=== PATIENT | female | born 1985 | race Caucasian/White ===

== ENCOUNTER → 2020-01-27 11:23 | Outpatient (CLI) | payer OTHER, SELFPAY ==
--- NOTE | ~2020-01-27 | XR_ITS ---
EXAMINATION: XR chest 2V EXAM DATE: 01/27/2020 11:40 INDICATION: Cough. TECHNIQUE: Frontal and lateral projections of the chest obtained and reviewed. Comparison is made to prior examination from 03/20/2018. FINDINGS: The lungs are clear. There are no pleural effusions. The cardiomediastinal silhouette is within normal limits. There is no pneumothorax suspected. The bones and soft tissues are unremarkab le. There are cholecystectomy clips. IMPRESSION: No acute cardiopulmonary findings. Reviewed, dictated and finalized at location A.
== END ==
PROVIDERS: PCP Internal Medicine; Visit Provider Nurse Practitioner
DX: R05 Cough (principal)
CPT/HCPCS: 71046

== ENCOUNTER 2020-02-22 12:04 | Outpatient (NON) | payer OTHER, SELFPAY ==
[2020-02-23 11:49] LABS: SARS-CoV-2 RNA PCR Negative
== END 2020-02-22 12:05 ==
PROVIDERS: PCP Internal Medicine; Visit Provider Nurse Practitioner
DX: R68.89 Other general symptoms and signs (principal); Z20.828 Contact with and (suspected) exposure to other viral communicable diseases
CPT/HCPCS: 87635; U0003

== ENCOUNTER 2020-03-28 14:43 | Outpatient (CLI) | payer OTHER, SELFPAY ==
--- NOTE | 2020-04-02 01:42 | WPDPFTINT ---
PFT Interpretation PFT Interpretation: DOS: 03/28/2020 REQUESTING: Mecca Singh PA-C REASON FOR TESTING: Shortness of breath PULMONARY FUNCTION TESTS Patient had a (+) COVID test on 02/20/2020. Results are reproducible. Spirometry: FEV1 is 94%, FVC is 90%, and FEV1% is 82%, all normal. No bronchodilator was given. Lung volumes: TLC 84%, normal RV 63%, and normal airway resistance. Diffusion: DLCO is 94%, normal. Flow volume loop: Normal. IMPRESSION: Normal study. Tiana Longoria MD
--- NOTE | 2020-08-08 09:41 | WPDPFTINT ---
PFT Interpretation PFT Interpretation: This Spirometry met all criteria for ATS standards and reproducibility FEV/FVC pre bronchodilator 78% of predicted FEV1 81% of predicted 2.51 liters FVC 92% of predicted or 3.66 liters Flow volume loops appeared normal. Impression: Normal Spirometry. When compared to March 2020 there has been no significant change. Clinical correlation is advised.
--- NOTE | 2020-08-22 09:20 | WPDPFTINT ---
PFT Interpretation PFT Interpretation: This Spirometry met all criteria for ATS standards and reproducibility FEV/FVC post bronchodilator 69% FEV1 81% or 2.51 liters FVC 92% or 3.66 liters Lung volumes and diffusion capacity were not done. Flow volume loops looked normal. Impression: Possible mild obstruction. Would recommend repeating full PFT with methacholine challenge. Clinical correlation is advised.
== END 2020-03-28 14:44 | disposition home or self-care (01) ==
PROVIDERS: PCP Internal Medicine; Visit Provider Nurse Practitioner
DX: R06.02 Shortness of breath (principal)
CPT/HCPCS: 94375; 94726; 94729

== ENCOUNTER 2020-08-01 12:34 | Outpatient (CLI) | payer OTHER, SELFPAY ==
--- NOTE | 2020-08-01 12:50 | ECHO_ITS ---
Patient Info Name: Leonora Pelletier Call Age: 35 years : 1985 Gender: Female Ht: 67 in Wt: 155 lbs BSA: 1.83 m2 HR: 86 bpm BP: 116 / 82 mmHg Heart Rhythm: Sinus Rhythm Technical Quality: Good Exam Date: 08/01/2020 1:04 PM Exam Location: [facility] Patient Status: Outpatient Admit Date: 08/01/2020 Staff Ordering Physician: Wily Regan DO Retail Loss Prevention Officer: Osbaldo Coppola RDCS Attending Provider: Wily Regan DO Referring Physician: Jass GR; Exam Type: CA echo doppler color flow Study Info Indications R06.02 - Shortness of breath Complete two-dimensional, color flow and Doppler transthoracic echocardiogram is performed. History/Risk Factors Shortness of breath. Summary 1. Complete two-dimensional, color flow and Doppler transthoracic echocardiogram is performed. 2. Left ventricular chamber dimension is normal. 3. Left ventricular systolic function is normal, estimated at 60-65%. 4. The left ventricular diastolic function is normal. 5. E/e' 7 is not elevated. 6. Global longitudinal strain is normal at -19.5%. Left Ventricle E/e' 7 is not elevated. Global longitudinal strain is normal at -19.5%. Left ventricular chamber dimension is normal. Left ventricular systolic function is normal, estimated at 60-65%. The left ventricular diastolic function is normal. Right Ventricle Right ventricular chamber dimension is normal. Right ventricular systolic function is normal. Left Atria Left atrial chamber dimension is normal. Right Atria Right atrial chamber dimension is normal. Aortic Valve The aortic valve is trileaflet. There is no aortic valve stenosis. There is no aortic valve regurgitation. Pulmonic Valve There is no pulmonic regurgitation. Mitral Valve There is no mitral valve stenosis. There is no mitral valve regurgitation. Tricuspid Valve There is no tricuspid valve regurgitation. Pericardium/Pleural There is no pericardial effusion. Inferior Vena Cava Normal inferior vena cava with >50% collapse upon inspiration consistent with normal right atrial pressure, 5 mmHg. Aorta The aortic root size at the sinus of Valsalva is normal. Left Ventricular Outflow Tract Name Value Normal LVOT 2D LVOT Diameter 2.0 cm LVOT Doppler LVOT Peak Gradient 3 mmHg LVOT Mean Gradient 2 mmHg LVOT VTI 18 cm LVOT VTI/AV VTI Ratio 0.9 LVOT Stroke Volume 55 ml LVOT CO 4.3 l/min LVOT CI 2.4 l/min/m2 Mitral Valve Name Value Normal MV Doppler MV Decel [place] 454 cm/s2 MV PHT 51 ms MV Area (PHT) 4.3 cm2
--- NOTE | 2020-08-22 09:23 | PFT_ITS ---
This report was moved to the correct visit, [id number], on August 27, 2020. Original report was signed by Dr. Melissa Lemon on August 22, 2020 at 0923. PFT Interpretation PFT Interpretation: This Spirometry met all criteria for ATS standards and reproducibility FEV/FVC post bronchodilator 69% FEV1 81% or 2.51 liters FVC 92% or 3.66 liters Lung volumes and diffusion capacity were not done. Flow volume loops looked normal. Impression: Possible mild obstruction. Would recommend repeating full PFT with methacholine challenge. Clinical correlation is advised. Report Initialized date/time: Melissa Lemon MD 08/22/20922 Electronically signed by: Melissa Lemon MD 08/22/20922 [facility]
== END 2020-08-01 12:35 | disposition home or self-care (01) ==
LOC: ANHCARD 12:36
PROVIDERS: PCP Internal Medicine; Visit Provider Internal Medicine
DX: R06.02 Shortness of breath (principal)
CPT/HCPCS: 93306; 94060

== ENCOUNTER 2020-11-28 08:58 | Outpatient (NON) | payer OTHER, SELFPAY ==
[2020-11-28 21:58] LABS: SARS-CoV-2 RNA PCR Negative
== END 2020-11-28 08:59 ==
LOC: ANHCOVIDDT 08:59
PROVIDERS: PCP Internal Medicine; Visit Provider Internal Medicine
DX: Z20.822 Contact with and (suspected) exposure to COVID-19 (principal)
CPT/HCPCS: C9803; U0003; U0005

== ENCOUNTER → 2021-07-02 02:41 | Outpatient (CLI) | payer BC, SELFPAY ==
[2021-07-02 19:41] LABS: SARS-CoV-2 RNA PCR Negative
== END ==
PROVIDERS: PCP Internal Medicine; Visit Provider Internal Medicine
DX: Z20.822 Contact with and (suspected) exposure to COVID-19 (principal)
CPT/HCPCS: C9803; U0003; U0005

== ENCOUNTER → 2021-07-16 12:57 | Outpatient (CLI) | payer BC, SELFPAY ==
--- NOTE | ~2021-07-16 | XR_ITS ---
EXAMINATION: XR chest 2V DATE: 07/16/2021 13:09 INDICATION: Cough TECHNIQUE: PA and lateral views of the chest are obtained. COMPARISON: 01/27/2020 FINDINGS: The lungs are free of acute opacities. There is no pleural effusion or pneumothorax. The ca rdiomediastinal silhouette is normal. The visualized bones and soft tissues are unremarkable. IMPRESSION: 1. No acute cardiopulmonary abnormality. Reviewed, dictated and finalized at location B.
== END ==
PROVIDERS: PCP Internal Medicine; Visit Provider Nurse Practitioner
DX: R05 Cough (principal)
CPT/HCPCS: 71046

== ENCOUNTER → 2021-10-08 03:57 | Outpatient (CLI) | payer BC, SELFPAY ==
[2021-10-08 20:04] LABS: SARS-CoV-2 RNA PCR Negative
== END ==
PROVIDERS: PCP Internal Medicine; Visit Provider Nurse Practitioner
DX: Z20.822 Contact with and (suspected) exposure to COVID-19 (principal)
CPT/HCPCS: C9803; U0003; U0005

== ENCOUNTER 2022-04-22 09:10 | Emergency (ER) | payer BC, SELFPAY ==
--- NOTE | ~2022-04-22 | CT_ITS ---
EXAMINATION: CT brain wo con DATE: 04/22/2022 10:35 INDICATION: Unrelenting migraine headache. Posterior headache radiating to neck. Nausea. TECHNIQUE: Computed tomography (CT) of the head was performed without intravenous contrast. The mA wa s adjusted according to patient size. Iterative reconstruction technique was employed. Exam dose: 60 5.33 mGy-cm total exam DLP. COMPARISON: 03/20/2018 CT brain FINDINGS: No intracranial mass lesion or hemorrhage or cerebrovascular accident. No midline shift or mass effect effect. Normal ventricular size. Normal upton-white matter differentiation. No subdural or epidural hematoma. No fracture or bone destruction of the cranial vault. Included mastoid air cells and paranasal sinuse s are normally developed and aerated. IMPRESSION: Normal examination Reviewed, dictated and finalized at Location A. Reviewed, dictated and finalized at location A. IMPRESSION: Normal examination
[2022-04-22 09:40] VITALS: BP 135/91; PULSE 83; RESP 16; TEMP 36.9; O2SAT 96
--- NOTE | 2022-04-22 09:57 | ED.HA ---
HPI - Headache General Chief Complaint: Headache Stated Complaint: headache Time Seen by Provider: 04/22/22 09:45 History of Present Illness HPI Narrative: Patient is a 36-year-old female here for evaluation of a migraine headache over the past 3 days. Patient states the migraine has been constant in nature, is pulsatile and throbbing around her left orbit, and is also described as a band of tension around her head. The migraine is there throughout the day and is not worse at a particular time, and is associated with floaters, photophobia, phonophobia, and nausea. Denies relief after Advil, tramadol, Tylenol, prednisone. She has a diagnosis of vestibular migraines, for which she follows with an ENT and a COVID clinic at [place]. These have been attributed to a sequela of COVID, and she deals with chronic dizziness and sensation of imbalance. She has not had imaging of her brain. Patient has not gotten headaches with the symptoms. She was given prednisone by her ENT without relief of her symptoms. Related Data Home Medications Medication Instructions Recorded Confirmed gabapentin 100 mg capsule 100 mg PO TID 03/26/21 07/16/21 ubrogepant 50 mg tablet (Ubrelvy) 50 mg PO ONCE 03/26/21 07/16/21 Allergies Allergy/AdvReac Type Severity Reaction Status Date / Time Iodine and Iodide Containing Allergy Unknown Hives Verified 03/26/21 12:26 Produc Contrast Media Allergy Mild Hives / Uncoded 03/26/21 12:26 Red Face Review of Systems Review of Systems: Gen: Denies fevers or chills Eyes: Reports photophobia and floaters. denies eye pain ENT: Denies congestion Respiratory: Denies shortness of breath or cough CV: Denies chest pain or palpitations GI: Reports nausea. Denies abdominal pain, emesis or diarrhea : denies burning, urgency, frequency or hematuria Musculoskeletal: Denies back pain or muscle pain Neuro: Reports headache. Denies numbness, tingling, weakness or focal weakness Skin: Denies rash Except as documented, all other systems reviewed and negative [facility] Past Medical History Medical History Bruising, spontaneous COVID-19 Gastroesophageal reflux disease with esophagitis Shortness of Breath UTI (urinary tract infection) Surgical History Surgical History History of hysterectomy Family History Family History Mother Patient's mother is in good health Father Patient's father is in good health Other Cerebrovascular accident Family history of cardiovascular disease Family history of malignant neoplasm Social History Social History Alcohol intake: current Exam Narrative: APPEARANCE: Well appearing, no pain in distress, well-nourished. Head: normocephalic and atraumatic. EYES: PERRLA/EOMI, conjunctivae clear. Photophobia. NOSE: No nasal drainage Neck: No nuchal rigidity. EARS: External ear normal in appearance THROAT: Oropharynx is clear. Mucous membranes are moist. NECK: Supple. No adenopathy, no masses. RESPIRATORY: Airway patent, respirations nonlabored. Clear to auscultation bilaterally, no rales, rhonchi, wheezing. CARDIOVASCULAR: Regular rate and rhythm without murmurs, rubs, or gallops. ABDOMINAL: Normoactive bowel sounds. Soft, nontender, nondistended. No rebound tenderness or guarding. MUSCULOSKELETAL: Extremities are warm and well-perfused. Moves all extremities well. No edema. NEURO: Cranial nerves II through XII intact. [id number] normal. Normal speech. No focal neurologic deficits. SKIN:: Skin is warm and dry. No rashes. PSYCHIATRIC: Normal affect/mood. Course Vital Signs Vital signs: Vital Signs Temperature 36.9 C 04/22/22 09:40 Pulse Rate 83 04/22/22 09:40 Respiratory Rate 16 04/22/22 09:40 Blood Pressure 135/91 H 04/22/22 09:40 P
[2022-04-22 10:35] VITALS: BP 135/90; PULSE 74; RESP 16; O2SAT 99
[2022-04-22] MEDS: SODIUM CHLORIDE 0.9% IV 1,000 ML 999 ML IV CONT (10:36)
[2022-04-22] MEDS: diphenhydrAMINE HCl INJ 50 MG/ML VIAL 12.5 MG IV PUSH (10:37)
[2022-04-22] MEDS: PROCHLORPERAZINE EDISYLATE 10 MG/2 ML VIAL IV PUSH (10:37)
[2022-04-22] MEDS: KETOROLAC 15 MG/ML VIAL (*BKC) IV PUSH (11:21)
[2022-04-22 11:30] VITALS: BP 122/80; PULSE 70; RESP 16; O2SAT 96
== END 2022-04-22 11:30 | disposition home or self-care (01) ==
PROVIDERS: Emergency Provider Emergency Medicine; PCP Internal Medicine
DX: G43.909 Migraine, unspecified, not intractable, without status migrainosus (principal); K21.00 Gastro-esophageal reflux disease with esophagitis, without bleeding; Z86.16 Personal history of COVID-19; Z87.440 Personal history of urinary (tract) infections
CPT/HCPCS: 70450; 96361; 96374; 96375; 99284; J0780; J1200; J1885; J7030

== ENCOUNTER 2022-10-20 00:23 | Day surgery (SDC) | payer BC, SELFPAY ==
[2022-10-17 09:51] VITALS: BMI 27.9
[2022-10-20 10:44] VITALS: BP 109/80; PULSE 90; RESP 19; TEMP 36.2; O2SAT 98
[2022-10-20] MEDS: LACTATED RINGERS 1,000 ML 150 ML IV CONT (10:52)
--- NOTE | 2022-10-20 11:24 | WPDANESEPPF ---
Anes - Initial Pre Proc Eval Procedure: Operation Date: 10/20/22 14:00 Proposed Procedures p Esophagogastroduodenoscopy EGD - Ishmael Avila MD Date/Time: 10/20/22 11:24 Surgeon: Ishmael Avila MD Pre Op Diagnosis: dysphagia Patient Data Age: 37 Gender: F Height: 1.7 m Weight: 82 kg Last Vital Signs Temp 97.2 F L 10/20/22 10:44 Pulse 90 10/20/22 10:44 Resp 19 10/20/22 10:44 BP 109/80 10/20/22 10:44 Pulse Ox 98 10/20/22 10:44 O2 Del Method Room Air 10/20/22 10:44 Allergies Allergy/AdvReac Type Severity Reaction Status Date / Time Iodine and Iodide Containing Allergy Unknown Hives Verified 10/20/22 10:43 Produc Contrast Media Allergy Mild Hives / Uncoded 10/20/22 10:43 Red Face Home Medications Medication Instructions Recorded Confirmed Type gabapentin 100 mg capsule 100 mg PO TID 03/26/21 10/17/22 History cetirizine 10 mg tablet (Zyrtec) 10 mg PO DAILY #30 tabs 05/13/22 10/17/22 Rx famotidine 20 mg tablet (Pepcid) 20 mg PO DAILY #30 tabs 05/13/22 10/17/22 Rx nortriptyline 25 mg capsule 25 mg PO QHS 10/10/22 10/17/22 History ondansetron 4 mg disintegrating 4 mg PO Q8H 10/10/22 10/17/22 History tablet propranolol 10 mg tablet 10 mg PO Q12H 10/10/22 10/17/22 History Patient hx anesthesia problems: none Family hx anesthesia problems: none Results Review: All pre-operative results and documents have been reviewed as part of the pre-operative evaluation. [facility] Past Medical History Medical History Bruising, spontaneous COVID-19 Gastroesophageal reflux disease with esophagitis Shortness of Breath UTI (urinary tract infection) Surgical History Surgical History History of hysterectomy Family History Family History Mother Patient's mother is in good health Father Patient's father is in good health Other Cerebrovascular accident Family history of cardiovascular disease Family history of malignant neoplasm Social History Social History Smoking status: Never smoker Alcohol intake: current Drinks per week: 3 Substance use: never Substance use type: does not use Living arrangements: with family Spiritual care concerns: No Anes - Eval Final PreProcedure Day of Procedure 10/20/22 11:24 Patient weight: overweight Heart: regular rate and rhythm Lungs: clear to auscultation Airway: Mallampati scale class II Neurological: alert and oriented Last oral intake: >/= 8 hours ASA classification: II Emergent: no Anesthetic plan: proceed Results Review: All pre-operative results and documents have been reviewed as part of the pre-operative evaluation. Informed Consent: The patient's anesthetic plan and its attendant risks and benefits were discussed with the patient/family/POA. Questions were solicited and answers provided to the satisfaction of the patient/family/POA.
--- NOTE | 2022-10-20 11:38 | P.HP_ITS ---
History of Present Illness History of Present Illness Consent: Risks, benefits, and alternatives have been discussed and questions answered. Patient agrees to proceed with procedure. Chief complaint: dysphagia Narrative: Leonora Pena is a 37 year old female With difficulty swallowing. She has had a previous Wojciech fundoplication. Afterwards she did have EGD twic e by , with dilatation with a 52 [place] bougie, in 2018 and 2019 Review of Systems Review of Systems: All systems reviewed & are unremarkable except as noted in HPI and below PMFSH Past Medical History Medical History Bruising, spontaneous COVID-19 Gastroesophageal reflux disease with esophagitis Shortness of Breath UTI (urinary tract infection) Surgical History Surgical History History of hysterectomy Family History Family History Mother Patient's mother is in good health Father Patient's father is in good health Other Cerebrovascular accident Family history of cardiovascular disease Family history of malignant neoplasm Social History Social History Smoking status: Never smoker Alcohol intake: current Drinks per week: 3 Substance use: never Substance use type: does not use Living arrangements: with family Spiritual care concerns: No Meds Home Medications and Allergies Home Medications Medication Instructions Recorded Confirmed Type gabapentin 100 mg capsule 100 mg PO TID 03/26/21 10/17/22 History cetirizine 10 mg tablet (Zyrtec) 10 mg PO DAILY #30 tabs 05/13/22 10/17/22 Rx famotidine 20 mg tablet (Pepcid) 20 mg PO DAILY #30 tabs 05/13/22 10/17/22 Rx nortriptyline 25 mg capsule 25 mg PO QHS 10/10/22 10/17/22 History ondansetron 4 mg disintegrating 4 mg PO Q8H 10/10/22 10/17/22 History tablet propranolol 10 mg tablet 10 mg PO Q12H 10/10/22 10/17/22 History Allergies Allergy/AdvReac Type Severity Reaction Status Date / Time Iodine and Iodide Containing Allergy Unknown Hives Verified 10/20/22 10:43 Produc Contrast Media Allergy Mild Hives / Uncoded 10/20/22 10:43 Red Face Vital Signs Vital Signs - 24 hr 10/20/22 10:44 Temperature 36.2 C L Pulse Rate 90 Respiratory Rate 19 Blood Pressure 109/80 Pulse Oximetry 98 Oxygen Delivery Room Air Exam Const: General: alert Orientation/consciousness: patient oriented x3 Resp: Auscultation: clear to auscultation bilaterally Cardio: Rhythm: regular rhythm GI: GI Palp: Yes Soft to palpation and No Tenderness to palpation present (GI) Neuro: General: patient oriented x3 Assessment and Plan Assessment and plan (1) Dysphagia: Code(s): R13.10 - Dysphagia, unspecified Status: Acute Assessment and Plan: EGD with possible biopsy or dilatation or cautery.
[2022-10-20 12:00] VITALS: BP 93/65; PULSE 81; RESP 22; O2SAT 98
[2022-10-20 12:10] VITALS: BP 100/69; PULSE 83; RESP 17; O2SAT 99
[2022-10-20 12:20] VITALS: BP 107/71; PULSE 77; RESP 12; O2SAT 99
== END 2022-10-20 12:30 | disposition home or self-care (01) ==
PROVIDERS: PCP Internal Medicine; Visit Provider Internal Medicine Gastroenterology
PROC: 0DJ08ZZ Inspection of Upper Intestinal Tract, Via Natural or Artificial Opening Endoscopic (ICD-10-PCS; CPT 43235; principal; 2022-10-20 14:00)
DX: R07.9 Chest pain, unspecified (principal); R13.10 Dysphagia, unspecified; K44.9 Diaphragmatic hernia without obstruction or gangrene; K31.89 Other diseases of stomach and duodenum; K21.9 Gastro-esophageal reflux disease without esophagitis
CPT/HCPCS: 43450; 43235; J2704; J7120

== ENCOUNTER → 2023-08-21 13:16 | Outpatient (CLI) | payer BC, SELFPAY ==
--- NOTE | ~2023-08-21 | MM_ITS ---
EXAMINATION: MM screening don BI w avis HISTORY: Screening mammogram TECHNIQUE: Craniocaudal and mediolateral oblique 3-D tomosynthesis images were obtained and synthetic 2-D images were generated. Bilateral rotated lateral CC views. CAD analysis was submitted and interp reted. COMPARISON: 10/15/2016 bilateral diagnostic mammogram and complete bilateral breast ultrasound examina tion BREAST PARENCHYMAL COMPOSITION: The breasts are heterogeneously dense, which may obscure small masses . FINDINGS: Stable fibroglandular asymmetry. There is no evidence of suspicious mass, calcification, or architectural distortion to suggest malignancy in either breast. There has been no suspicious interv al change. IMPRESSION: 1. No mammographic evidence of malignancy. 2. Recommend routine screening mammography in one year. BI-RADS Category 1: Negative Reviewed, dictated and finalized at location A.
== END ==
PROVIDERS: PCP Obstetrics & Gynecology; Visit Provider Obstetrics & Gynecology
DX: Z12.31 Encounter for screening mammogram for malignant neoplasm of breast (principal)
CPT/HCPCS: 77063; 77067

== ENCOUNTER 2024-11-15 15:37 | Outpatient (CLI) | payer BC, SELFPAY ==
--- NOTE | ~2024-11-15 | XR_ITS ---
Exam: Abdomen 1 view HISTORY: K59.00 - Constipation, unspecified COMPARISON: Reference is made to a CT examination of the abdomen and pelvis dated 09/08/2019 TECHNIQUE: Frontal images of the abdomen FINDINGS: Fecal stasis within the ascending colon and rectum. Air is present within the rectum. Air opacification and air-fluid levels of the hepatic flexure and a large loop of likely transverse c olon within the mid abdomen. Evidence of prior abdominal hernia repair No free air on upright view. Lung bases are unremarkable. Bones and soft tissues are unremarkable. IMPRESSION: Fecal stasis distending the ascending colon and rectum Air-fluid levels within the hepatic flexure and the large loop of likely transverse colon within the mid abdomen. Reviewed, dictated and finalized at location A. [employer] IMPRESSION: Fecal stasis distending the ascending colon and rectum Air-fluid levels within the hepatic flexure and the large loop of likely transv erse colon within the mid abdomen.
== END 2024-11-15 15:38 | disposition home or self-care (01) ==
LOC: MICIMG 15:38
PROVIDERS: PCP Nurse Practitioner; Visit Provider Nurse Practitioner
DX: K56.41 Fecal impaction (principal)
CPT/HCPCS: 74019

== ENCOUNTER 2024-12-26 12:36 | Emergency (ER) | payer BC, SELFPAY ==
--- NOTE | ~2024-12-26 | CT_ITS ---
EXAMINATION: CT abdomen pelvis wo con DATE: 12/26/2024 15:27 INDICATION: Abdominal pain. TECHNIQUE: Computed tomography (CT) of the abdomen and pelvis was performed without intravenous contr ast. Automated exposure control and iterative reconstruction technique were employed. The dose-length product was 429.45 mGy-cm. COMPARISON: CT abdomen and pelvis 11/17/2024 FINDINGS: The visualized portions of the lung bases are clear without pneumonia or pleural effusion. The heart size is normal. No pericardial effusion. There are changes of fundoplication of the stomach with the wrap above the diaphragm. The liver and spleen are normal. There are changes of cholecystec augustin. The pancreas, adrenal glands, and right kidney are normal. There are 3 stones in left kidney me asuring up to 3 mm. There are no dilated loops of bowel. The appendix is normal. There are no patholo gically enlarged lymph nodes. There is physiologic fluid in the pelvis. There is mild lumbar spondylo sis. IMPRESSION: 1. Changes of fundoplication of the stomach with the wrap above the diaphragm. Reviewed, dictated and finalized at location A. IVER DISPATCHER
[2024-12-26 12:48] VITALS: BP 105/75; PULSE 115; RESP 15; TEMP 39; O2SAT 99
--- NOTE | 2024-12-26 14:31 | ED_ITS ---
HPI - General Adult General Chief complaint: Nausea/Vomiting/Diarrhea Stated complaint: flu A, nauseated Time Seen by Provider: 12/26/24 14:09 History of Present Illness HPI narrative: 39-year-old female present to the emergency department for evaluation for nausea vomiting and epigastric abdominal pain. Patient states she did start developing flu-like symptoms yesterday and did do some outpatient testing and was positive for flu A. Patient states that she does have a history of Wojciech fundoplication and Zofran is not helping with her nausea. Patient was told if she has uncontrolled nausea vomiting that she needs to present to the emergency department for evaluation. Patient does report epigastric abdominal pain patient has declined any medications for pain control patient is mainly seeking medications for nausea control. Patient has previously tolerated Reglan. Related Data Home Medications ?Medication ?Instructions ?Recorded ?Confirmed ?Last Taken ?Type fremanezumab-vfrm 225 mg/1.5 mL 225 mg subcut MONTHLY 10/09/23 10/12/24 Unknown History subcutaneous auto-injector (Ajovy) rizatriptan 5 mg tablet 5 mg PO ONCE PRN 10/09/23 10/12/24 Unknown History omeprazole 10 mg capsule,delayed 10 mg PO DAILY 10/12/24 10/12/24 Unknown History release topiramate 25 mg tablet mg PO 10/12/24 10/12/24 Unknown History Allergies Allergy/AdvReac Type Severity Reaction Status Date / Time Iodine and Iodide Containing Allergy Unknown Hives Verified 12/26/24 14:45 Produc Contrast Media Allergy Mild Hives / Uncoded 12/26/24 14:45 Red Face Review of Systems 2 Review of Systems: All systems reviewed & are unremarkable except as noted in HPI and below PMFSH Past Medical History Medical History BMI 26.0-26.9,adult COVID-19 Shortness of Breath Bruising, spontaneous UTI (urinary tract infection) Gastroesophageal reflux disease with esophagitis Surgical History Surgical History History of cholecystectomy History of lithotripsy History of gastric surgery H/O hernia repair History of hysterectomy Family History Family History Mother Patient's mother is in good health Father suicide Sibling No problems noted. Other Cerebrovascular accident Family history of cardiovascular disease Family history of malignant neoplasm Social History Social History Smoking status: Never smoker Second hand tobacco smoke exposure: No Alcohol intake: current Drinks per week: 3 Substance use: never Substance use type: does not use Do You Feel Safe in your Home?: Yes Lack of Transportation: No Lack of Food: Never True Current Housing: I Have Housing Concerned About Future Housing: No Difficulty Paying Gas/Electric Bills: No Difficulty Paying for Meds: No Currently Unemployed: No Education: High School Diploma/GED Difficulty w/ Childcare or Family Care: No Living arrangements: with family Occupation/Education: occupation 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 Gender identity (if verbalized by the patient): Female Spiritual care concerns: No Exam 2 Narrative: APPEARANCE: Uncomfortable appearing HEAD: normocephalic, atraumatic. EYES: PERRLA/EOMI, conjunctivae clear. NOSE: Normal no drainage EARS:TMS clear with good light reflex. THROAT: Pharynx clear, no exudate. NECK: Supple. No adenopathy, no masses. RESPIRATORY: Airway patent, respirations nonlabored. Clear to auscultation bilaterally, no rales, rhonchi, wheezing. CARDIOVASCULAR: Regular rate and rhythm without murmurs rubs or gallops. ABDOMINAL: Epigastric tenderness to palpation MUSCULOSKELETAL: Moves all extremities. Strength/ROM intact, No edema, No calf tenderness. NEURO: Alert. Cranial nerves II through XII intact. Good gait. Good coordination SKIN: Warm, dry. Normal ColorPSYCHIATRIC: Normal affect/mood. Course Vital Signs Vital signs: Vital Signs Temperature 102.2 F H 12/26/24 12:48 Pulse Rate 115 H 12/26/24 12:48 Respiratory Rate 15 12/26/24 12:48 Blood Pressure 105/75 12/26/24 12:48 Pulse Oximetry 99 12/26/24 12:48 Temperature 102.2 F H 12/26/24 12:48 Pulse Rate 115 H 12/26/24 12:48 Respiratory Rate 15 12/26/24 12:48 Blood Pressure 105/75 12/26/24 12:48 Pulse Oximetry 99 02/17/25 12:48 Medical Decision Making [facility] Narrative Medical decision making narrative: 39-year-old female present to the emergency department for evaluation for nausea vomiting. Patient was positive for influenza A at home. Patient does have Tessalon Perles ordered to prevent excessive coughing due to her Wojciech fundoplication, patient is currently afebrile with no leukocytosis and hemoglobin of 12.8 patient's INR is 1.0 patient did have a mildly low potassium of 3.2. Patient's lactic acid is not elevated. Lipase was within normal limits. Patient was treated with IV fluids and did feel significantly improved. Patient also received IV Reglan and she states this did help to control her nausea. CT scan showed no acute abnormality. On re-evaluation patient was comfortable the plan for discharge home. Patient does have Zofran Tessalon Perles but she will be provided additional Reglan for nausea control. Patient was encouraged to follow a clear liquid diet. Patient will have follow-up with her surgeons. All questions concerns were addressed patient was comfortable the plan for discharge and close follow-up. Differential Diagnosis Differential Diagnosis: Colitis, diverticulitis, pancreatitis, ulcer, perforation, influenza, dehydration Vital Signs Vital Signs: Vital Signs Temperature 102.2 F H 12/26/24 12:48 Pulse Rate 115 H 12/26/24 12:48 Respiratory Rate 15 12/26/24 12:48 Blood Pressure 105/75 12/26/24 12:48 Pulse Oximetry 99 12/26/24 12:48 Temperature 102.2 F H 12/26/24 12:48 Pulse Rate 115 H 12/26/24 12:48 Respiratory Rate 15 12/26/24 12:48 Blood Pressure 105/75 12/26/24 12:48 Pulse Oximetry 99 12/26/24 12:48 Lab Data Lab results reviewed: Yes I reviewed the patient's lab results. 12/26/24 14:53 12/26/24 14:53 Labs: Lab Results 12/26/24 Range/Units 14:53 WBC 6.1 (4.5-10.0) K/mm3 RBC 4.63 (4.2-5.4) M/mm3 Hgb 12.8 (12.0-15.0) g/dL Hct 38.7 (37.0-47.0) % MCV 83.6 (80-100) fl MCH 27.6 (26-34) pg MCHC 33.1 (32-36) g/dl RDW 12.3 (11.5-14.5) % Plt Count 177 (150-375) k/mm3 MPV 11.1 H (7.4-10.4) fl Immature Gran % (Auto) 0.2 (0-0.5) % Neut % (Auto) 84.6 H (45.5-73.1) % Lymph % (Auto) 6.3 L (18.3-44.2) % [place] % (Auto) 8.4 (2.6-8.5) % Eos % (Auto) 0.0 (0-4.4) % Baso % (Auto) 0.5 (0.2-1.2) % Lymph # (Auto) 0.38 L (0.9-3.2) K/mm3 [place] # (Auto) 0.5 (0.1-0.6) K/mm3 Eos # (Auto) 0.0 (0-0.3) K/mm3 Baso # (Auto) 0.0 (0.0-0.1) K/mm3 Abs Immat Gran (auto) 0.01 (0.00-0.031) K/mm3 Absolute Neuts (auto) 5.1 (1.3-6.7) K/mm3 Absolute Nucleated RBC 0.000 (0.0-0.012) K/mm3 Nucleated RBC % 0.0 (0.0-0.2) % PT 13.8 (11.1-14.7) Seconds INR 1.0 APTT 33.3 (22.3-36.8) Seconds Sodium 136 L (137-145) mmol/L Potassium 3.2 L (3.4-5.0) mmol/L Chloride 104 (98-107) mmol/L Carbon Dioxide 21 L (22-30) mmol/L Anion Gap 11 (4-12) mmol/L BUN 5 L (7-17) mg/dL Creatinine 0.72 (0.7-1.0) mg/dL Estim Creat Clear Calc 83 ml/min Estimated GFR > 60 (59 - ) Glucose 110 (65-110) mg/dL Lactic Acid 1.0 (0.7-2.0) mmol/L Calcium 8.4 (8.4-10.2) mg/dL Total Bilirubin 0.8 (0.2-1.3) mg/dL AST 83 H (14-36) U/L ALT 103 H (6-35) U/L Alkaline Phosphatase 68 (38-126) U/L Total Protein 7.0 (6.3-8.2) g/dL Albumin 4.0 (3.5-5.1) g/dL Lipase 64 (23-300) U/L Imaging Data Radiologist's impression: Impressions Abdomen/Pelvis CT 12/26/24 15:28 IMPRESSION: 1. Changes of fundoplication of the stomach with the wrap above the diaphragm. Discharge Plan Discharge Clinical Impression: Abdominal pain, Nausea & vomiting Patient Disposition: Home, Self-Care Condition: Stable Instructions: Antibiotic Form, Clear Liquid Diet (ED), Abdominal Pain (ED) Additional Instructions: continue Zofran as needed for nausea control. Reglan as needed for additional nausea control. Clear liquid diet for the next 1-3 days, advance to a bland diet as tolerated. Have close follow-up with your physicians. If you have any worsening symptoms then please call or return to the emergency department. Patient Language: Uzbek Prescriptions: New metoclopramide HCl [Reglan] 10 mg tablet 10 mg PO Q6H PRN (Reason: nausea and vomiting) Qty: 14 0RF No Action rizatriptan 5 mg tablet 5 mg PO ONCE PRN Rx Instructions: may repeat once after at least 2 hours Ajovy Autoinjector 225 mg/1.5 mL auto-injector 225 mg subcut MONTHLY omeprazole 10 mg capsule,delayed release(DR/EC) 10 mg PO DAILY topiramate 25 mg tablet PO gabapentin 400 mg capsule 400 mg PO TID Qty: 90 5RF nortriptyline 25 mg capsule See Rx Instructions .ROUTE .COMPLEX Qty: 30 5RF Dose Instruction: TAKE 1 CAPSULE BY MOUTH EVERY DAY AT BEDTIME Rx Instructions: TAKE 1 CAPSULE BY MOUTH EVERY DAY AT BEDTIME phenazopyridine 200 mg tablet 200 mg PO TID PRN (Reason: urinary discomfort) Qty: 6 0RF ondansetron 4 mg tablet,disintegrating 4 mg PO Q8H PRN (Reason: nausea and vomiting) Qty: 30 0RF benzonatate 200 mg capsule 200 mg PO TID PRN (Reason: cough) Qty: 30 0RF oseltamivir [Tamiflu] 75 mg capsule 75 mg PO Q12H 5 Days Qty: 10 0RF Follow-up/Referrals: Jordin Alcantara APRN [Primary Care Provider] -
[2024-12-26] MEDS: SODIUM CHLORIDE 0.9% IV 1,000 ML 999 ML IV CONT (14:48)
[2024-12-26] MEDS: METOCLOPRAMIDE HCL INJ 10 MG/2 ML VIAL IV PUSH (14:49)
--- OUTSIDE RECORDS SUMMARY | 2024-12-26 15:00 | XMS_ITS | Encounter Summary ---
Author Organization [employer] Address 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 No / Unsure 02/02/2020 11:13 AM CDT documented as of this encounter Plan of Treatment Not on file documented as of this encounter Visit Diagnoses Not on filedocumented in this encounter Additional Health Concerns Infection Onset Date Last Indicated Resolved Time COVID-19 02/07/2020 02/07/2020 03/08/2020 1:16 AM CDT documented as of this encounter Care Teams Pin Puller Relationship Specialty Start Date End Date Wily Regan DO [address] [place] [address] PCP - General Internal Medicine 07/01/19 documented as of this encounter
--- OUTSIDE RECORDS SUMMARY | 2024-12-26 15:00 | XMS_ITS | Encounter Summary ---
Author Organization [employer] Address [address] [place] [address] Care Team Providers Care Senior Vice President & General Counsel Name Role Phone Wily Regan DO Primary Care Provider [phone] Encounter Details Date Type Department Care Team (Late st Contact Info) Description 02/12/2020 Digital Self COVID-1 9 Monitoring [place] ABSTRACTION Provider, Abstract NO ADDRESS ON FILE Social History Tobacco Use Types Packs/Day Years Used Date Smoking Tobacco: Never Alcohol Use Standard Drinks/Week Comments No 0 (1 standard drink = 0.6 oz pur e alcohol) Comments No Sex and Gender Information Value Date Recorded Sex Assigned at Not on file 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
--- OUTSIDE RECORDS SUMMARY | 2024-12-26 15:00 | XMS_ITS | Clinical Summary ---
Author Organization [facility] Address [address] [place] [address] Phone Care Team Providers Care Semiautomatic Taper Operator Name Role Phone Wily Regan DO Primary Care Provider [phone] Allergies Active Allergy Reactions Criticality Noted Date Comments Iodinated Contrast Media Hives High 07/08/2019 Medications ondansetron (ZOFRAN) 4 mg Oral Tab Take 8 mg by mouth every 6 hours as needed. 04/15/2010 Active cyanocobalamin (VITAMIN B-12) 500 mcg tablet Take 500 mcg by mouth daily. Active omeprazole (PriLOSEC) 20 mg Capsule, Delayed Release(E.C.) Take 20 mg by mouth daily. Active gabapentin (NEURONTIN) 100 mg capsule Take 100 mg by mouth 3 times daily. Active cyanocobalamin Powder Take 1,000 mg by mouth. Active azithromycin (ZITHROMAX) 250 mg tablet Take 2 tablets by mouth the first day and 1 tablet days 2-5. 6 Tablet 02/11/2020 Active Active Problems Problem Noted Date Diagnosed Date Easy bruising 07/22/2019 Immunizations Immunization Administration Dates Next Due Influenza A (H1N1) Vaccine IM 08/11/2009 Influenza Seasonal Unspecified Formulation IM ,09/01/2009 Family History Medical History Relation Name Comments Seizures Brother -born @ 26weeks Healthy Father Healthy Mother Relation Name Status Comments Brother Father Alive Mother Alive Social History Tobacco Use Types Packs/Day Years Used Date Smoking Tobacco: Never Alcohol Use Standard Drinks/Week Comments No 0 (1 standard drink = 0.6 oz pur e alcohol) Comments No Sex and Gender Information Value Date Recorded Sex Assigned at Not on file 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 Gender Identity Not on file Sexual Orientation Not on file Last Filed Vital Signs Vital Sign Reading Time Taken Comments Blood Pressure 114/78 07/22/2019 8:26 AM CDT Pulse 94 02/11/2020 9:41 AM CDT Temperature 37.8 C (100.1 F) 02/11/2020 9:41 AM CDT Respiratory Rate 18 10/09/2010 12:54 PM MARKET EDITOR Oxygen Saturation 99% 02/11/2020 9:41 AM CDT Inhaled Oxygen Concentration - - Weight 66 kg (145 lb 9.6 oz) 07/22/2019 8:26 AM CDT Height 170.2 cm (5' 7 ) 07/22/2019 8:26 AM CDT Body Mass Index 22.8 07/22/2019 8:26 AM CDT Plan of Treatment Health Maintenance Due Date Last Done Comments DTAP/TDAP/TD VACCINES (1 - Tdap) 2002 HEPATITIS B VACCINES (1 of 3 - 19+ 3-dose series) 2002 CERVICAL CANCER SCREENING 2013 BREAST CANCER SCREENING 2023 INFLUENZA VACCINE (#1) 2024 0, 09/01/2009 HPV VACCINES Aged Out No longer eligi ble based on patient's age to complete this topic Insurance [facility] [id number] Advance Directives For more information, please contact: [phone] * Full Code (Latest Code Status on File) Date Activated Date Inactivated Comments 10/09/2010 1:23 PM 10/09/2010 4:54 PM * Full Code Date Activated Date Inactivated Comments 09/18/2010 10:42 PM 09/19/2010 3:24 AM * Full Code Date Activated Date Inactivated Comments 06/25/2010 8:40 PM 06/26/2010 12:09 AM * Full Code Date Activated Date Inactivated Comments 05/28/2010 1:45 PM 05/28/2010 7:47 PM * Full Code Date Activated Date Inactivated Comments 05/28/2010 10:49 AM 05/28/2010 1:45 PM Care Teams Semiautomatic Taper Operator Relationship Specialty Start Date End Date Wily Regan DO [address] [facility] [address] [place] [address] PCP - General Internal Medicine 07/01/19
--- OUTSIDE RECORDS SUMMARY | 2024-12-26 15:00 | XMS_ITS | Encounter Summary ---
Author Organization [employer] Address 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
--- OUTSIDE RECORDS SUMMARY | 2024-12-26 15:00 | XMS_ITS | Encounter Summary ---
Author Organization [facility] Address [address] [place] [address] Phone Care Team Providers Care P 3 Armament/Ordnance Ima Technician Name Role Phone Wily Regan DO Primary Care Provider [phone] Chantelle Shields MD Unavailable [phone] Teetee Gaming MD, Ramez Slaughter Unavailable + Bonnie Prince DPT Unavailable [phone] Chase Sofia MD Unavailable Jo Vyas OT Unavailable [phone] Jordin Alcantara NP Primary Care Provider [phone] Encounter Details Date Type Department Care Team (Late st Contact Info) Description 10/03/2022 Orders Only [facility] Scanning, Provider Social History Tobacco Use Types Packs/Day Years Used Date Smoking Tobacco: Never Smokeless Tobacco: Never Alcohol Use Standard Drinks/Week Comments No 0 (1 standard drink = 0.6 oz pur e alcohol) AUDIT-C Answer Date Recorded Q1: How often do you have a drink containing alc ohol? Monthly or less 06/25/2021 Q2: How many drinks containi ng alcohol do you have on a typical day when you are drinking? 1 or 2 06/25/2021 Q3: How often do you have si x or more drinks on one occasion? 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 Gender Identity Female 01/24/2021 10:20 AM CDT Sexual Orientation Straight 01/24/2021 10 :20 AM CDT documented as of this encounter Plan of Treatment Not on file documented as of this encounter Procedures Procedure Name Priority Date/Time Associated Diagnosis Comments SCAN - RADIOLOGY/IMAGING 10/03/2022 documented in this encounter Results * SCAN - RADIOLOGY/IMAGING (10/03/2022) Anatomical Region Laterality Modality Other us Provider Scanning Final Result documented in this encounter Visit Diagnoses Not on filedocumented in this encounter Care Teams P 3 Armament/Ordnance Ima Technician Relationship Specialty Start Date End Date Wily Regan DO PCP - General Internal Medicine 12/14/20 06/01/24 Jordin Alcantara, EDUCATIONAL ADVISER [address] [place] [address] PCP - General Nurse Practitioner 06/02/24 Chantelle Shields MD Consulting Physician Internal Medicine 02/13/21 Ramez Kingsley Jr., MD Consulting Physician Neurology 02/13/21 Bonnie Prince DPT [address] [place] [address] Physical Therapist Physical Therapy 08/14/22 Chase Sofia MD [address] [place] [address] Consulting Physician Gastroenterology 12/25/22 Jo Vyas OT [address] [place] [address] Occupational Therapist Occupational Therapy 01/29/23 Sabrina Kurtz, [place] [address] Bone Char Puller Infectious Diseases 08/11/22 documented as of this encounter
--- OUTSIDE RECORDS SUMMARY | 2024-12-26 15:00 | XMS_ITS | Encounter Summary ---
Author Organization [employer] Address 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 Gender Identity Not on file Sexual Orientation Not on file documented as of this encounter Plan of Treatment Not on file documented as of this encounter Visit Diagnoses Diagnosis Bipolar I disorder, most recent episode (or current) mixed, unspecified (CMS/HCC)- Primary Bipolar I disorder, most recent episode (or current) mixed, unspecified documented in this encounter Additional Health Concerns Infection Onset Date Last Indicated Resolved Time COVID-19 02/07/2020 02/07/2020 03/08/2020 1:16 AM CDT R/O COVID-19 02/07/2020 02/07/2020 02/10/2020 5:10 PM CDT documented as of this encounter Care Teams Sort Line Worker Relationship Specialty Start Date End Date Wily Regan DO [address] [facility] [address] [facility] [[email or web address] [address] [place] [address] PCP - General Internal Medicine 07/01/19 documented as of this encounter
--- OUTSIDE RECORDS SUMMARY | 2024-12-26 15:00 | XMS_ITS | Encounter Summary ---
Author Organization [facility] Address [address] [place] [address] Phone Care Team Providers Care Corporate Travel Counselor Name Role Phone Robert Hernandez MD Primary Care Provider [phone] Wily Regan DO Primary Care Provider [phone] Chantelle Shields MD Unavailable [phone] Teetee Gaming MD, Ramez Slaughter Unavailable + Bonnie Prince DPT Unavailable [phone] Chase Sofia MD Unavailable Jo Vyas OT Unavailable [phone] Jordin Alcantara NP Primary Care Provider [phone] Encounter Details Date Type Department Care Team (Late st Contact Info) Description 08/05/2018 Orders Only [facility] Surgery [address] [facility] Advanced Medicine 8th [place] [address] [place] [address] Molina Jackson MD [address] [place] [address] Social History Tobacco Use Types Packs/Day Years Used Date Smoking Tobacco: Never Smokeless Tobacco: Never Alcohol Use Standard Drinks/Week Comments No 0 (1 standard drink = 0.6 oz pur e alcohol) Comments No Sex and Gender Information Value Date Recorded Sex Assigned at Not on file 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 Gender Identity Female 01/24/2021 10:20 AM CDT Sexual Orientation Straight 01/24/2021 10 :20 AM CDT documented as of this encounter Plan of Treatment Not on file documented as of this encounter Visit Diagnoses Not on filedocumented in this encounter Additional Health Concerns Infection Onset Date Last Indicated Resolved Time COVID: Suspected 07/19/2021 07/19/2021 07/19/2021 11:11 PM CDT documented as of this encounter Care Teams Corporate Travel Counselor Relationship Specialty Start Date End Date Robert Hernandez MD [address] [facility] [address] [facility] [address] [place] [address] PCP - General 03/30/18 12/13/20 Wily Regan DO [address] [place] [address] [address] [place] [address] PCP - General Internal Medicine 12/14/20 06/01/24 Jordin Alcantara, DOPE WEIGH OPERATOR [address] [place] [address] PCP - General Nurse Practitioner 06/02/24 Chantelle Shields MD [address] [place] [address] [address] [place] [address] Consulting Physician Internal Medicine 02/13/21 Ramez Kingsley Jr., MD [address] [place] [address] [address] [facility] [address] [place] [address] Consulting Physician Neurology 02/13/21 Bonnie Prince, DPT [address] [address] Physical Therapist Physical Therapy 08/14/22 Chase Sofia MD [address] [place] [address] Consulting Physician Gastroenterology 12/25/22 Jo Vyas, OT [address] [place] [address] Occupational Therapist Occupational Therapy 01/29/23 [place] [address] University Extension Specialist Infectious Diseases 08/11/22 documented as of this encounter
--- OUTSIDE RECORDS SUMMARY | 2024-12-26 15:00 | XMS_ITS | Clinical Summary ---
Author Organization [facility] Address [address], [address] [address] Phone Care Team Providers Care Brim Stretcher Name Role Phone Wily Regan DO Primary Care Provider [phone] Allergies Active Allergy Reactions Criticality Noted Date Comments Other Hives 03/23/2019 CT IV dye Medications hyoscyamine (LEVSIN) 0.125 MG Tablet Take 1 Tab by mouth every 6 hours as needed for Cramping. 120 Tab 3 8 Active omeprazole (PRILOSEC) 20 MG CAPSULE DELAYED RELEASE Take 1 Cap by mouth daily. 30 Cap 3 9 Active Additional Information Patient taking differently:20 mg Oral2 TIMES DAILY PRN, Reported on 03/23/2019 gabapentin (NEURONTIN) 100 MG Capsule Take 1 Cap by mouth nightly. 90 Cap 3 9 Active ondansetron (ZOFRAN) 8 MG Tablet Take 8 mg by mouth every 8 hours as needed for Nausea - 1st line. Active Calcium Carbonate Antacid (TUMS PO) Take by mouth as needed. Active Cyanocobalamin (B-12 PO) Take 1,000 mg by mouth daily. Active Family History Medical History Relation Name Comments No Known Problems Father Chronic Obstructive Pulmonary Disease Mother Emphysema Mother Cancer Paternal Grandfather Cancer Paternal Grandmother Relation Name Status Comments Father Mother Alive Paternal Grandfather Paternal Grandmother Social History Tobacco Use Types Packs/Day Years Used Date Smoking Tobacco: Never Smokeless Tobacco: Never Alcohol Use Standard Drinks/Week Comments No 0 (1 standard drink = 0.6 oz pur e alcohol) Sexually Active Control Partners Comments Yes Male Comments No Sex and Gender Information Value Date Recorded Sex Assigned at Not on file 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 Gender Identity Not on file Sexual Orientation Not on file 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 Not on file Not on file Not on file Last Filed Vital Signs Vital Sign Reading Time Taken Comments Blood Pressure 112/80 08/05/2019 10:03 AM CDT Pulse 66 08/05/2019 10:03 AM CDT Temperature 36 C (96.8 F) 04/06/2019 10:14 AM CDT Respiratory Rate 13 04/06/2019 10:14 AM CDT Oxygen Saturation 98% 08/05/2019 10:03 AM CDT Inhaled Oxygen Concentration - - Weight 66.2 kg (146 lb) 08/05/2019 10:03 AM CDT Height 170.2 cm (5' 7 ) 04/06/2019 8:49 AM CDT Body Mass Index 22.87 04/06/2019 8:49 AM CDT Plan of Treatment Health Maintenance Due Date Last Done Comments Hepatitis C Virus (HCV) Screening 1983 TdaP Immunization 1983 Hepatitis B Immunization (1 of 3 - 19+ 3-dose series) 2002 Discussion re Starting/Frequency of Mammograms 2023 Influenza Immunization (#1) 07/10/202408/09, 08/20/2012 SARS-COV-2 Immunization ( season) 2024 09/29/2021, 01/31/2021, 01/08/2021 Respiratory Syncytial Virus (RSV) Immunization (Adult) (1 - 1-dose 75+ series) 2058 Meningococcal Immunization (ACWY) Aged Out No longer eligible b ased on patient's age to complete this topic Pneumococcal Immunization Combined Aged Out No longer eligible b ased on patient's age to complete this topic Rotavirus Immunization Aged Out No lo nger eligible based on patient's age to complete this topic Care Teams Brim Stretcher Relationship Specialty Start Date End Date Wily Regan DO [address] [place] [id number] PCP - General Internal Medicine 04/06/19
--- OUTSIDE RECORDS SUMMARY | 2024-12-26 15:00 | XMS_ITS | Encounter Summary ---
Author Organization [facility] Address [address] [place] [address] Care Team Providers Care Shade Cutter Name Role Phone Wily Regan DO Primary Care Provider [phone] Encounter Details Date Type Department Care Team (Late st Contact Info) Description 01/06/2001 Outpatient Historical [facility] [address] [facility] 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 Gender Identity Not on file Sexual Orientation Not on file documented as of this encounter Plan of Treatment Not on file documented as of this encounter Visit Diagnoses Not on filedocumented in this encounter Additional Health Concerns Infection Onset Date Last Indicated Resolved Time COVID-19 02/07/2020 02/07/2020 03/08/2020 1:16 AM CDT R/O COVID-19 02/07/2020 02/07/2020 02/10/2020 5:1 0 PM CDT documented as of this encounter Care Teams Shade Cutter Relationship Specialty Start Date End Date Wily Regan DO [address] [facility] [address] [place] [address] PCP - General Internal Medicine 07/01/19 documented as of this encounter
--- OUTSIDE RECORDS SUMMARY | 2024-12-26 15:00 | XMS_ITS | Encounter Summary ---
Author Organization [employer] Address 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
--- OUTSIDE RECORDS SUMMARY | 2024-12-26 15:00 | XMS_ITS | Encounter Summary ---
Author Organization [facility] Address [address] [place] [address] Phone Care Team Providers Care Gunner'S Mate M Name Role Phone Wily Regan DO Primary Care Provider [phone] Chantelle Shields MD Unavailable [phone] Teetee Gaming MD, Ramez Slaughter Unavailable + Bonnie Prince DPT Unavailable [phone] Chase Sofia MD Unavailable Jo Vyas OT Unavailable [phone] Jordin Alcantara NP Primary Care Provider [phone] Encounter Details Date Type Department Care Team (Late st Contact Info) Description 10/05/2022 Orders Only [facility] Scanning, Provider Social History Tobacco Use [...] on file 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 Sex Female 2:13 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 CONTROL 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 Gender Identity Female 01/24/2021 10:20 AM CDT Sexual Orientation Straight 01/24/2021 10 :20 AM CDT documented as of this encounter Plan of Treatment Not on file documented as of this encounter Procedures Procedure Name Priority Date/Time Associated Diagnosis Comments SCAN - RADIOLOGY/IMAGING 10/05/2022 documented in this encounter Results * SCAN - RADIOLOGY/IMAGING (10/05/2022) Anatomical Region Laterality Modality Other us Provider Scanning Final Result documented in this encounter Visit Diagnoses Not on filedocumented in this encounter Care Teams Gunner'S Mate M Relationship Specialty Start Date End Date Wily Regan DO PCP - General Internal Medicine 12/14/20 06/01/24 Jordin Alcantara, CHARGE MASTER COORDINATOR [address] [place] [address] PCP - General Nurse Practitioner 06/02/24 Chantelle Shields MD Consulting Physician Internal Medicine 02/13/21 Ramez Kingsley Jr., MD Consulting Physician Neurology 02/13/21 Bonnie Prince DPT [address] [place] [address] Physical Therapist Physical Therapy 08/14/22 Chase Sofia MD [address] [place] [address] Consulting Physician Gastroenterology 12/25/22 Jo Vyas OT [address] [place] [address] Occupational Therapist Occupational Therapy 01/29/23 Sabrina Kurtz, [place] [address] Deputy Assessor Infectious Diseases 08/11/22 documented as of this encounter
--- OUTSIDE RECORDS SUMMARY | 2024-12-26 15:00 | XMS_ITS | Encounter Summary ---
Author Organization [facility] Address [address] [place] [address] Care Team Providers Care Director Of Residential Services Name Role Phone Wily Regan DO Primary Care Provider [phone] Encounter Details Date Type Department Care Team (Late st Contact Info) Description 09/01/2000 Outpatient Historical [facility] 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
--- OUTSIDE RECORDS SUMMARY | 2024-12-26 15:00 | XMS_ITS | Encounter Summary ---
Author Organization [employer] Address 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
--- OUTSIDE RECORDS SUMMARY | 2024-12-26 15:00 | XMS_ITS | Encounter Summary ---
Author Organization [email or web address] Address [address] [place] [address] Care Team Providers Care Director Enterprise Systems Name Role Phone Wily Regan DO Primary Care Provider [phone] Encounter Details Date Type Department Care Team (Latest Contact Info) Description 09/14/2002 Outpatient Historical [facility] [place] Eric Mcdonald MD [address] [facility] [address] [place] [address] DEPRESS PSYCHOSIS-UNSPEC (Primary Dx) Social History Tobacco Use Types Packs/Day Years Used Date Smoking Tobacco: Never Assessed Comments Unknown Sex and Gender Information Value Date Recorded Sex Assigned at Not on file Legal Sex Female 5:22 AM IN HOME NANNY Gender Identity Not on file Sexual Orientation Not on file documented as of this encounter Plan of Treatment Not on file documented as of this encounter Visit Diagnoses Diagnosis Major depressive disorder, single episode, unspecified- Primary documented in this encounter Additional Health Concerns Infection Onset Date Last Indicated Resolved Time COVID-19 02/07/2020 02/07/2020 03/08/2020 1:16 AM CDT R/O COVID-19 02/07/2020 02/07/2020 02/10/2020 5:10 PM CDT documented as of this encounter Care Teams Director Enterprise Systems Relationship Specialty Start Date End Date Wily Regan DO [address] [place] [address] PCP - General Internal Medicine 07/01/19 documented as of this encounter
--- OUTSIDE RECORDS SUMMARY | 2024-12-26 15:00 | XMS_ITS | Encounter Summary ---
Author Organization [email or web address] Address 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
--- OUTSIDE RECORDS SUMMARY | 2024-12-26 15:00 | XMS_ITS | Encounter Summary ---
Author Organization [facility] Address [address] [place] [address] Care Team Providers Care Sandblast Or Shotblast Equipment Tender Name Role Phone Wily Regan DO Primary Care Provider [phone] Encounter Details Date Type Department Care Team (Late st Contact Info) Description 07/18/1998 Outpatient Historical [facility] 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
--- OUTSIDE RECORDS SUMMARY | 2024-12-26 15:00 | XMS_ITS | Encounter Summary ---
Author Organization [employer] Address 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 Gender Identity Not on file Sexual Orientation Not on file documented as of this encounter Plan of Treatment Not on file documented as of this encounter Visit Diagnoses Diagnosis Cervicalgia- Primary documented in this encounter Additional Health Concerns Infection Onset Date Last Indicated Resolved Time COVID-19 02/07/2020 02/07/2020 03/08/2020 1:16 AM CDT R/O COVID-19 02/07/2020 02/07/2020 02/10/2020 5:10 PM CDT documented as of this encounter Care Teams Ux Manager Relationship Specialty Start Date End Date Wily Regan DO [address] [facility] [address] [place] [address] PCP - General Internal Medicine 07/01/19 documented as of this encounter
--- OUTSIDE RECORDS SUMMARY | 2024-12-26 15:00 | XMS_ITS | Encounter Summary ---
Author Organization [employer] Address 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
--- OUTSIDE RECORDS SUMMARY | 2024-12-26 15:00 | XMS_ITS | Encounter Summary ---
Author Organization [employer] Address 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
--- OUTSIDE RECORDS SUMMARY | 2024-12-26 15:00 | XMS_ITS | Encounter Summary ---
Author Organization [employer] Address 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 Gender Identity Not on file Sexual Orientation Not on file documented as of this encounter Plan of Treatment Not on file documented as of this encounter Visit Diagnoses Diagnosis Abdominal pain, unspecified site- Primary documented in this encounter Additional Health Concerns Infection Onset Date Last Indicated Resolved Time COVID-19 02/07/2020 02/07/2020 03/08/2020 1:16 AM CDT R/O COVID-19 02/07/2020 02/07/2020 02/10/2020 5:10 PM CDT documented as of this encounter Care Teams Authorization Manager Relationship Specialty Start Date End Date Wily Regan DO [address] [facility] [address] [place] [address] PCP - General Internal Medicine 07/01/19 documented as of this encounter
--- OUTSIDE RECORDS SUMMARY | 2024-12-26 15:01 | XMS_ITS | Referral Summary ---
Author Organization [facility] Address [address] [place] [address] Care Team Providers Care Electrician Shop Name Role Phone Chantelle Shields MD Unavailable Teetee Gaming MD, Ramez Slaughter Unavailable + Bonnie Prince DPT Unavailable [phone] Chase Sofia MD Unavailable Jo Vyas OT Unavailable [phone] Jordin Alcantara NP Primary Care Provider [phone] Encounters Date Type Department Care Team Description 12/15/2024 4:00 PM DIRECTOR OF CURRICULUM AND INSTRUCTION Office Visit [facility] General Neurology [address] [place] [address] 6th Floor [address] [place] [phone] Gabriella Garner PA Vestibular migraine (Primary Dx) 11/22/2024 Telephone [facility] ([facility]) - [facility] Minimally Invasive Surgery [address] [facility] 12th Floor, [place] [address] Radha Rosen 11/21/2024 Telephone [facility] Advanced Medicine ([facility]) - [facility] Minimally Invasive Surgery [address] [facility] Medicine 12th Floor, [place] [address] Radha Rosen 11/21/2024 7:39 AM DIRECTOR OF CURRICULUM AND INSTRUCTION - 11/21/2024 11:59 PM DIRECTOR OF CURRICULUM AND INSTRUCTION Hospital Encounter [facility] [address] [place] [address] Discharge Disposition: Discharge to home or self care 11/17/2024 Telephone [facility] ([facility]) - [facility] Minimally Invasive Surgery [address] [facility] 12th Floor, [place] [address] Radha Rosen 11/16/2024 Telephone [facility]) - [facility] Minimally Invasive Surgery [address] [facility] 12th Floor, [place] [address] Radha Rosen 10/27/2024 Plan of Care Documentation [facility] Occupational Therapy [address] [place] [phone] 10/27/2024 8:00 AM DIRECTOR OF CURRICULUM AND INSTRUCTION Therapy [facility] Physical Therapy [address] [place] [phone] Bonnie Prince, DPT Stephen MARIN (Primary Dx); Vestibular migraine 10/27/2024 7:00 AM DIRECTOR OF CURRICULUM AND INSTRUCTION Therapy [facility] Occupational Therapy [address] [place] [phone] Jo Vyas, OT Stephen MARIN (Primary Dx) from Last 3 Months Allergies Active Allergy Reactions Criticality Noted Date Comments Iodinated Contrast Media Hives Medium 07/08/2019 Medications ondansetron ODT (ZOFRAN-ODT) 4 mg disintegrating tablet Take 1 tablet (4 mg total) by mouth every 8 (eight) hours as needed for nausea or vomiting 20 tablet 2 023 Active propranoloL (INDERAL) 10 mg tabletIndications :Migraine Prevention Take 1 tablet (10 mg total) by mouth 2 (two) times a day Crush pills take in applesauce until 01/05 when able to take pills whole 023 Active Additional Information Patient taking differently:10 mg oralNightly, (No instructions reported), Indications: Migraine Prevention, Reported on 12/15/2024 nortriptyline (PAMELOR) 25 mg capsule Take 1 capsule (25 mg total) by mouth nightly 30 capsule 1 023 Active gabapentin (NEURONTIN) 300 mg capsuleIndication s:Generalized muscle ache,COVID-19,His tory of COVID-19 TAKE 1 CAPSULE THREE TIMES DAILY. OPEN CAPSULE IN APPLESAUCE DIRECTED TILL ABLE TO TAKE WHOLE PILL 90 capsule 1 023 Active Additional Information Patient taking differently: Pt taking 400mg bid, Reported on 12/15/2024 guaiFENesin-codei ne (GUAITUSS AC) liquid 100-10 mg/5 mL Take 5 mL by mouth 4 (four) times a day as needed for cough 120 mL 024 Active rizatriptan (MAXALT) 10 mg tabletIndications :Migraine Take 1 tablet (10 mg total) by mouth once as needed for migraine May repeat in 2 hours if unresolved. Do not exceed 3 in 24 hours. 9 tablet 5 024 2024 Active topiramate (TOPAMAX) 25 mg tabletIndications :Intractable chronic migraine with aura and without status migrainosus,Vesti bular migraine Take 2 tablets (50 mg total) by mouth nightly 60 tablet 11 024 Active Additional Information Patient taking differently: 25 mgoral Nightly, Reported on 12/15/2024 fremanezumab-vfrm (Ajovy Autoinjector) 225 mg/1.5 mL auto-injector subcutaneous auto-injector ADMINISTER 1.5 ML(225 MG) UNDER THE SKIN EVERY 30 DAYS 1.5 mL 11 024 Active gabapentin (NEURONTIN) 100 mg capsule TAKE 1 CAPSULE(100 MG) BY MOUTH THREE TIMES DAILY 90 capsule 023 2024 Discontinued Active Problems Problem Noted Date Diagnosed Date Nutritional counseling 05/16/2024 Brain fog 12/23/2023 Vaccine counseling 09/08/2023 Anxiety about health 01/25/2023 Disrupted sleep-wake cycle 01/25/2023 Moderate malnutrition 12/30/2022 Paraesophageal hernia 12/29/2022 COVID-19 stephen garcia manifesting chronic fatigue 10/26/2022 COVID-19 stephen garcia manifes ting chronic decreased mobility and endurance 10/26/2022 Long COVID 07/08/2022 Dizziness 07/08/2022 Fatigue 07/08/2022 Myalgia 07/08/2022 Vestibular migraine 02/07/2022 Post covid-19 condition, unspecified 12/25/2021 Assessment & Plan (12/25/2021 9:25 AM DIRECTOR OF CURRICULUM AND INSTRUCTION): Pt is interested in the new findings that relate MCAS to Long Covid. Advised it is ok to try OTC antihistamines plus low histamine diet for 2-4 weeks. If no improvement, would discontinue. Advised against rx meds at this time as we aren't sure about their purpose/use in the post covid setting. Migraine aura without headache 12/25/2021 Assessment & Plan (12/25/2021 9:24 AM DIRECTOR OF CURRICULUM AND INSTRUCTION): Yesterday she had an incident where she experienced sx consistent w/ a migraine aura, but it was not followed by a typical migraine headache. She does have a hx of migraines w/ aura and a hx of vestibular issues and vertigo. She has seen neurology and is not currently interested in a return visit. Placed referral to ENT to address vestibular sx as a possible trigger. Provided reassurance regarding her vision changes -- temporary, lasted 30 min, no changes in coordination or sensation. In the interim, monitor sx closely for triggers. If this occurs again, she should go to ER or [facility]. Chronic migraine with aura 02/12/2021 Epigastric pain 01/03/2020 Overview (01/03/2020): Added automatically from request for surgery [id number] Chest pain due to GERD 07/19/2018 Overview (07/19/2018): Added automatically from request for surgery [id number] Esophageal dysphagia 07/13/2018 Overview (07/13/2018): Added automatically from request for surgery [id number] dysphagia s/p Wojicech fundoplication 04/20/2018 Hiatal hernia with gastroesophageal reflux 03/29 History of COVID-19 Shortness of breath Resolved Problems Problem Noted Date Diagnosed Date Resolved Date Dehydration 04/20/2018 04/22/2018 Immunizations Immunization Administration Dates Next Due H1N1 Inj 08/11/2009 Influenza, Trivalent, IM (MDV) 08/30/2010,2008 Influenza, Unspecified 08/23/2014,08/20/2012 Social History Tobacco Use Types Packs/Day Years Used Date Smoking Tobacco: Never Smokeless Tobacco: Never Tobacco Cessation:Counseling Given: Not Answered Alcohol Use Standard Drinks/Week Comments No 0 (1 standard drink = 0.6 oz pur e alcohol) AUDIT-C Answer Date Recorded Q1: How often do you have a drink containing alc ohol? Monthly or less 12/29/2022 Q2: How many drinks containi ng alcohol do you have on a typical day when you are drinking? 1 or 2 12/29/2022 Q3: How often do you have si x or more drinks on one occasion? Never 12/29/2022 Personal Safety Answer Date Recorded Getting School Help Needed Denies 10/21 Comments No Sex and Gender Information Value Date Recorded Sex Assigned at Not on file Legal Sex Female 2:13 AM DIRECTOR OF CURRICULUM AND INSTRUCTION Gender Identity Female 01/24/2021 10:20 AM CDT Sexual Orientation Straight 01/24/2021 10 :20 AM CDT Last Filed Vital Signs Vital Sign Reading Time Taken Comments Blood Pressure 114/83 12/15/2024 3:56 PM DIRECTOR OF CURRICULUM AND INSTRUCTION Pulse 95 12/15/2024 3:56 PM DIRECTOR OF CURRICULUM AND INSTRUCTION Temperature 36.2 C (97.2 F) 12/15/2024 3:56 PM DIRECTOR OF CURRICULUM AND INSTRUCTION Respiratory Rate 18 05/02/2024 8:32 AM CDT Oxygen Saturation 98% 12/15/2024 3:56 PM DIRECTOR OF CURRICULUM AND INSTRUCTION Inhaled Oxygen Concentration - - Weight 73.5 kg (162 lb) 06/02/2024 2:52 PM CDT Height 170.2 cm (5' 7 ) 06/02/2024 2:52 PM CDT Body Mass Index 25.37 06/02/2024 2:52 PM CDT Plan of Treatment Not on file Medical Devices Implanted Type Area Aircraft Engine Technician Device Identifier Shelf Expiration Date Model / Serial / Lot Ethicon Endo Surgery Ligaclip Extra Ligate Open Medium Large Clip Internal Titanium Latex Free [id number] - [id number] Implanted:Qty: 1 on 12/29/2022 by Molina Jackson MD at [facility] N/A: Abdomen Ethicon Endo Surgery [id number] 09/08/2027 [id number] / / [id number] [employer] Phasix Sepra 4x3in Monofilament Resorbable Rectangle Mesh [id number] - [id number] Implanted:Qty: 1 on 12/29/2022 by Molina Jackson MD at [facility] N/A: Abdomen [employer]/C R Bard [id number] 04/05/2024 [id number] / / [id number] Procedures Procedure Name Priority Date/Time Associated Diagnosis Comments CT BODY OUTSIDE REFERENCE Routine 11/21/2024 7:39 AM DIRECTOR OF CURRICULUM AND INSTRUCTION from Last 3 Months Results * CT Body Outside Reference (11/21/2024 7:39 AM DIRECTOR OF CURRICULUM AND INSTRUCTION) Impressions RAD_PACS[facility] - 11/21/2024 7:39 AM DIRECTOR OF CURRICULUM AND INSTRUCTION These images are for Reference purposes only and have not been reviewed by [facility]iology. There will be no report generated by a [facility] Radiologist. Narrative RAD_PACS_[facility] - 11/21/2024 7:39 AM DIRECTOR OF CURRICULUM AND INSTRUCTION EXAMINATION: Images For Reference Purposes Only Molina Jackson MD IMG CT PROCEDURES Final Resu lt Performing Organization Address City/State/[facility] Co de Phone Number [facility] from Last 3 Months Insurance [facility] [address] [address] CHOICE PLUS ANTHEM ACCESS CHOICE ANTHEM ACCESS CHOICE Advance Directives For more information, please contact: [phone] * Full Code (Latest Code Status on File) Date Activated Date Inactivated Comments 12/29/2022 8:38 PM 12/31/2022 7:04 PM * Full Code Date Activated Date Inactivated Comments 01/12/2020 1:13 PM 01/12/2020 7:16 PM * Full Code Date Activated Date Inactivated Comments 08/05/2018 12:59 PM 08/05/2018 4:39 PM * Full Code Date Activated Date Inactivated Comments 07/14/2018 8:24 AM 07/14/2018 2:07 PM * Full Code Date Activated Date Inactivated Comments 04/21/2018 9:26 AM 04/22/2018 5:40 PM Care Teams Electrician Shop Relationship Specialty Start Date End Date Jordin Alcantara NP [address] [place] [address] PCP - General Nurse Practitioner 06/02/24 Chantelle Shields MD Consulting Physician Internal Medicine 02/13/21 Ramez Kingsley Jr., MD Consulting Physician Neurology 02/13/21 Bonnie Prince DPT [address] [facility] [address] [place] [address] Physical Therapist Physical Therapy 08/14/22 Chase Sofia MD [address] [place] [address] Consulting Physician Gastroenterology 12/25/22 Jo Vyas OT [address] [place] [address] Occupational Therapist Occupational Therapy 01/29/23 Sabrina Kurtz, [place] [address] Harvesting Contractor Infectious Diseases 08/11/22
--- OUTSIDE RECORDS SUMMARY | 2024-12-26 15:01 | XMS_ITS | Clinical Summary ---
Author Organization [facility] Address [address] [place] [address] Care Team Providers Care Mold Machine Operator Name Role Phone Chantelle Shields MD Unavailable [phone] Teetee Gaming MD, Steven Richard Unavailable + Bonnie Prince DPT Unavailable [phone] Chase Sofia MD Unavailable [phone] Jo Vyas OT Unavailable [phone] Jordin Alcantara NP Primary Care Provider + [phone] Allergies Active Allergy Reactions Criticality Noted Date [...] 12/25/2021 Assessment & Plan (12/25/2021 9:25 AM SIDE SPLITTER): Pt is interested in the new findings that relate MCAS to Long Covid. Advised it is ok to try OTC antihistamines plus low histamine diet for 2-4 weeks. If no improvement, would discontinue. Advised against rx meds at this time as we aren't sure about their purpose/use in the post covid setting. Migraine aura without headache 12/25/2021 Assessment & Plan (12/25/2021 9:24 AM SIDE SPLITTER): Yesterday she had an incident where she [...] (01/03/2020): Added automatically from request for surgery [id number] Chest pain due to GERD 07/19/2018 Overview (07/19/2018): Added automatically from request for surgery [id number] Esophageal dysphagia 07/13/2018 Overview (07/13/2018): Added automatically from request for surgery [id number] dysphagia s/p Avery fundoplication 04/20/2018 Hiatal hernia with gastroesophageal reflux 03/29 History of COVID-19 Shortness of breath Resolved Problems Problem Noted Date Diagnosed Date Resolved Date Dehydration 04/20/2018 04/22/2018 Encounters Date Type Department Care Team Description 12/15/2024 4:00 PM SIDE SPLITTER Office Visit [facility] General Neurology [address] [facility] 6th Floor [address] [place] [address] Gabriella Garner PA Vestibular migraine (Primary Dx) 11/22/2024 Telephone [facility] ([facility]) - [facility] Minimally Invasive Surgery [address] [facility] 12th Floor, [place] [address] Radha Rosen 11/21/2024 7:39 AM SIDE SPLITTER - 11/21/2024 11:59 PM SIDE SPLITTER Hospital Encounter [facility] [address] [place] [address] Discharge Disposition: Discharge to home or self care 11/21/2024 Telephone [facility] ([facility]) - [facility] Minimally Invasive Surgery [address] [facility] 12th [address], [place] [address] Radha Rosen 11/17/2024 Telephone [facility] ([facility]) - [facility] Minimally Invasive Surgery [address] [facility] 12th Floor, [place] [address] Radha Rosen 11/16/2024 Telephone [facility] ([facility]) - [facility] Minimally Invasive Surgery [address] [facility] 12th Floor, [place] [address] Radha Rosen 10/27/2024 8:00 AM SIDE SPLITTER Therapy [facility] Physical Therapy [address] [place] [address] [address] [place] [address] Bonnie Prince, DPT Stephen MARIN (Primary Dx); Vestibular migraine 10/27/2024 7:00 AM SIDE SPLITTER Therapy [facility] Occupational Therapy [address] [place] [phone] Jo Vyas, OT Long COVID (Primary Dx) 10/27/2024 Plan of Care Documentation [facility] Occupational Therapy [address] [place] [phone] from Last 3 Months Immunizations Immunization Administration Dates Next Due H1N1 Inj 08/11/2009 Influenza, Trivalent, IM (MDV) 08/30/2010,2008 Influenza, Unspecified 08/23/2014,08/20/2012 Surgical History Surgery Date Site/Laterality Comments CHOLECYSTECTOMY TONSILLECTOMY SECTION 11/09/2010 - 11/08/2011 HYSTERECTOMY UMBILICAL HERNIA REPAIR AVERY FUNDOPLICATION 04/14/2018 ESOPHAGOSCOPY / EGD s/p dilatation CERVICAL CERCLAGE 11/09/2009 - 11/08/2010 EXTRACORPOREAL SHOCK WAVE LITHOTRIPSY Medical History Medical History Date Comments GERD (gastroesophageal reflux disease) Hiatal hernia Nausea & vomiting PONV (postoperative nausea and vomiting) relieved with IV medication and scope patch DOS Dysphagia esophageal dilat ions past Gastroparesis Weight loss Migraine Fibroid Kidney stones Family History Medical History Relation Name Comments Blood Clot Brother Hyperlipidemia Father Diabetes Maternal Grandfather Leukemia Maternal Grandfather COPD Mother Heart disease Mother Lung disease Mother Stroke Mother Colon cancer Paternal Grandfather Alzheimer's disease Paternal Grandmother Anesthesia problems Neg Hx Relation Name Status Comments Brother blood clot age 18 Father Maternal Grandfather Maternal Grandmother Mother CVA age 50s Paternal Grandfather Paternal Grandmother Social History Tobacco [...] on file Legal Sex Female 2:13 AM SIDE SPLITTER Gender Identity Female 01/24/2021 10:20 AM CDT Sexual Orientation Straight 01/24/2021 10 :20 AM CDT Obstetrics History Last Filed Vital Signs Vital Sign Reading Time Taken Comments Blood Pressure 114/83 12/15/2024 3:56 PM SIDE SPLITTER Pulse 95 12/15/2024 3:56 PM SIDE SPLITTER Temperature 36.2 C (97.2 F) 12/15/2024 3:56 PM SIDE SPLITTER Respiratory Rate 18 05/02/2024 8:32 AM CDT Oxygen Saturation 98% 12/15/2024 3:56 PM SIDE SPLITTER Inhaled Oxygen Concentration - - Weight 73.5 kg (162 lb) 06/02/2024 2:52 PM CDT Height 170.2 cm (5' 7 ) 06/02/2024 2:52 PM CDT Body Mass Index 25.37 06/02/2024 2:52 PM CDT Plan of Treatment Health Maintenance Due Date Last Done Comments Breast Cancer Screening-Mammogram 1983 Depression Screening 1983 Hepatitis C Screening 1983 DTaP/Tdap/Td Vaccine (1 - Tdap) 1994 Varicella Vaccines (1 of 2 - 13+ 2-dose series) 1996 Hepatitis B Screening 2001 Regular Well Visit/Exam 18-64 2001 Covid-19 Vaccine ( season) 2024 09/29/2021, 01/31/2021, 01/08/2021 Influenza Vaccine (#1) 2024 4, 08/20/2012, 08/30/2010, Additional history exists HPV Vaccines Aged Out No longer eligi ble based on patient's age to complete this topic Pneumococcal vaccine <65 Aged Out No longer eligible based on patient's age to complete this topic Medical Devices Implanted Type Area Entry Level Mechanical Engineer Device Identifier Shelf Expiration Date Model / Serial / Lot Ethicon Endo Surgery Ligaclip Extra Ligate Open Medium Large Clip Internal Titanium Latex Free Lt300 - [id number] Implanted:Qty: 1 on 12/29/2022 by Molina Jackson MD at [facility] N/A: Abdomen Ethicon Endo Surgery [id number] 09/08/2027 [id number] / / [id number] [employer] R Bard Phasix Sepra 4x3in Monofilament Resorbable Rectangle Mesh [id number] - [id number] Implanted:Qty: 1 on 12/29/2022 by Molina Jackson MD at [facility] N/A: Abdomen [employer]/C R Bard [id number] 04/05/2024 [id number] / / [id number] Procedures Procedure Name Priority Date/Time Associated Diagnosis Comments CT BODY OUTSIDE REFERENCE Routine 11/21/2024 7:39 AM SIDE SPLITTER from Last 3 Months Results * CT Body Outside Reference (11/21/2024 7:39 AM SIDE SPLITTER) Impressions [facility] - 11/21/2024 7:39 AM SIDE SPLITTER These images are for Reference purposes only and have not been reviewed by [facility] Radiology. There will be no report generated by a [facility] Radiologist. Narrative [facility] - 11/21/2024 7:39 AM SIDE SPLITTER EXAMINATION: Images For Reference Purposes Only L. Jordan Jackson MD IMG CT PROCEDURES Final Resu lt [facility] from Last 3 Months Insurance [facility] CHOICE PLUS ANTHEM ACCESS CHOICE ANTHEM ACCESS CHOICE Advance Directives For more information, please contact: [phone] * Full Code (Latest Code Status on [...] 9:26 AM 04/22/2018 5:40 PM Care Teams Mold Machine Operator Relationship Specialty Start Date End Date Jordin Alcantara, TRIM MOUNTER [address] [place] [address] PCP - General Nurse Practitioner 06/02/24 Chantelle Shields MD Consulting Physician Internal Medicine 02/13/21 Ramez Kingsley Jr., MD Consulting Physician Neurology 02/13/21 Bonnie Prince DPT [address] [facility] [address] [place] [address] Physical Therapist Physical Therapy 08/14/22 Chase Sofia MD [address] [facility] [address] [place] [address] Consulting Physician Gastroenterology 12/25/22 Jo Vyas OT [address] [facility] [address] [place] [address] Occupational Therapist Occupational Therapy 01/29/23 [place] [address] Perpetual Inventory Clerk Infectious Diseases 08/11/22
[2024-12-26 15:03] LABS: Basophils Percent Auto 0.5 % (0.2-1.2); Hematocrit 38.7 % (37.0-47.0); Hemoglobin 12.8 g/dL (12.0-15.0); Immature Granulocyte Absolute 0.01 K/mm3 (0.00-0.031); Immature Granulocyte Percent A 0.2 % (0-0.5); Lymphocytes Absolute Auto 0.38 K/mm3 (0.9-3.2); Lymphocytes Percent Auto 6.3 % (18.3-44.2); Mean Corpuscular HGB Conc 33.1 g/dl (32-36); Mean Corpuscular Hemoglobin 27.6 pg (26-34); Mean Corpuscular Volume 83.6 fl (80-100); Mean Platelet Volume 11.1 fl (7.4-10.4); Monocytes Absolute Auto 0.5 K/mm3 (0.1-0.6); Monocytes Percent Auto 8.4 % (2.6-8.5); Neutrophils Absolute Auto 5.1 K/mm3 (1.3-6.7); Neutrophils Percent Auto 84.6 % (45.5-73.1); Platelet Count Result 177 k/mm3 (150-375); Red Blood Count 4.63 M/mm3 (4.2-5.4); Red Cell Distribution Width 12.3 % (11.5-14.5); White Blood Count 6.1 K/mm3 (4.5-10.0)
[2024-12-26 15:14] LABS: Alanine Aminotransferase 103 U/L (6-35); Alkaline Phosphatase 68 U/L (38-126); Anion Gap 11 mmol/L (4-12); Aspartate Amino Transferase 83 U/L (14-36); Bilirubin,Total 0.8 mg/dL (0.2-1.3); Blood Urea Nitrogen 5 mg/dL (7-17); Calcium 8.4 mg/dL (8.4-10.2); Carbon Dioxide 21 mmol/L (22-30); Chloride 104 mmol/L (98-107); Estimated CRCL calculation 83 ml/min; Estimated Glomerular Filt Rate > 60; Glucose 110 mg/dL (65-110); Lipase 64 U/L (23-300); Potassium 3.2 mmol/L (3.4-5.0); Sodium 136 mmol/L (137-145)
[2024-12-26 15:23] LABS: Prothrombin Time 13.8 Seconds (11.1-14.7)
[2024-12-26 15:24] LABS: Partial Thromboplastin Time 33.3 Seconds (22.3-36.8)
--- OUTSIDE RECORDS SUMMARY | 2024-12-26 17:00 | XMS_ITS | Encounter Summary ---
Author Organization [facility] Address [address] [place] [address] Care Team Providers Care Binder Layer Name Role Phone Wily Regan DO Primary Care Provider [phone] Encounter Details Date Type Department Care Team (Late st Contact Info) Description 09/01/2000 Outpatient Historical [facility] [address] [place] [address] Darwin Beasley MD NO ADDRESS ON FILE Social History Tobacco Use Types Packs/Day Years Used Date Smoking Tobacco: Never Assessed Comments Unknown Sex and Gender Information Value Date Recorded Sex Assigned at Not on file Legal Sex Female 5:22 AM CONVEYOR CONSOLE OPERATOR Gender Identity Not on file Sexual [...] documented as of this encounter Care Teams Binder Layer Relationship Specialty Start Date End Date Wily Regan DO [address] [facility] [address] [place] [address] PCP - General Internal Medicine 07/01/19 documented as of this encounter
--- OUTSIDE RECORDS SUMMARY | 2024-12-26 17:00 | XMS_ITS | Encounter Summary ---
Author Organization [facility] [place] Address [address] [place] [address] Phone Care Team Providers Care Oxygen Equipment Technician Name Role Phone Wily Regan DO Primary Care Provider [phone] Chantelle Shields MD Unavailable [phone] Teetee Gaming MD, Ramez Slaughter Unavailable + Bonnie Prince DPT Unavailable [phone] Chase Sofia MD Unavailable Jo Vyas OT Unavailable [phone] Jordin Alcantara NP Primary Care Provider + [phone] Encounter Details Date Type Department Care Team [...] on file Legal Sex Female 2:13 AM WATER PROJECT ENGINEER Gender Identity Female 01/24/2021 10:20 AM CDT [...] on filedocumented in this encounter Care Teams Oxygen Equipment Technician Relationship Specialty Start Date End Date Wily Regan DO PCP - General Internal Medicine 12/14/20 06/01/24 Jordin Alcantara, NEON TUBE PUMPER [address] [place] [address] PCP - General Nurse Practitioner 06/02/24 Chantelle Shields MD Consulting Physician Internal Medicine 02/13/21 Ramez Kingsley Jr., MD Consulting Physician Neurology 02/13/21 Bonnie Prince DPT [address] [place] [address] Physical Therapist Physical Therapy 08/14/22 Chase Sofia MD [address] [place] [address] Consulting Physician Gastroenterology 12/25/22 Jo Vyas OT [address] [place] [address] Occupational Therapist Occupational Therapy 01/29/23 Sabrina Kurtz, [place] [address] Hospice Chaplain Infectious Diseases 08/11/22 documented as of this encounter
--- OUTSIDE RECORDS SUMMARY | 2024-12-26 17:00 | XMS_ITS | Encounter Summary ---
Author Organization [facility] Address [address] [place] [address] Care Team Providers Care Ingot Header Name Role Phone Wily Regan DO Primary Care Provider [phone] Encounter Details Date Type Department Care Team [...] on file Legal Sex Female 5:22 AM CORN CUTTER Gender Identity Not on file Sexual Orientation [...] documented as of this encounter Care Teams Ingot Header Relationship Specialty Start Date End Date Wily Regan DO [address] [place] [address] PCP - General Internal Medicine 07/01/19 documented as of this encounter
--- OUTSIDE RECORDS SUMMARY | 2024-12-26 17:00 | XMS_ITS | Encounter Summary ---
Author Organization [employer] Address [address] [place] [address] Care Team Providers Care Protection Agent Name Role Phone Wily Regan DO Primary Care Provider [phone] Encounter Details Date Type Department Care Team (Late st Contact Info) Description 03/01/2001 Outpatient Historical [facility] MRI DEPT Rambo Nguyen MD NO ADDRESS ON FILE Cervicalgia (Primary Dx) Social History Tobacco Use Types Packs/Day Years Used Date Smoking Tobacco: Never Assessed Comments Unknown Sex and Gender Information Value Date Recorded Sex Assigned at Not on file Legal Sex Female 5:22 AM SUPERVISOR OF RESEARCH Gender Identity Not on file [...] documented as of this encounter Care Teams Protection Agent Relationship Specialty Start Date End Date Wily Regan DO [address] [facility] [address] [place] [address] PCP - General Internal Medicine 07/01/19 documented as of this encounter
--- OUTSIDE RECORDS SUMMARY | 2024-12-26 17:00 | XMS_ITS | Encounter Summary ---
Author Organization [employer] Address [address] [place] [address] Care Team Providers Care Combat Engineer Name Role Phone Wily Regan Primary Care Provider [phone] Encounter Details Date Type Department Care Team (Latest Contact Info) Description 09/07/2002 Inpatient Historical HIS PATIENT IN A BED Eric Mcdonald MD [address] [facility] [address] [place] [address] BIPOL AFFECT, MIXED-UNSPEC (CMS/HCC) (Primary Dx) Social History Tobacco Use Types Packs/Day Years Used Date Smoking Tobacco: Never Assessed Comments Unknown Sex and Gender Information Value Date Recorded Sex Assigned at Not on file Legal Sex Female 5:22 AM BREAK OFF WORKER Gender Identity Not on file Sexual Orientation [...] documented as of this encounter Care Teams Combat Engineer Relationship Specialty Start Date End Date Wily Regan DO [address] [facility] [address] [facility] [address] [place] [address] PCP - General Internal Medicine 07/01/19 documented as of this encounter
--- OUTSIDE RECORDS SUMMARY | 2024-12-26 17:00 | XMS_ITS | Encounter Summary ---
Author Organization [employer] Address 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
--- OUTSIDE RECORDS SUMMARY | 2024-12-26 17:00 | XMS_ITS | Encounter Summary ---
Author Organization [employer] Address 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
--- OUTSIDE RECORDS SUMMARY | 2024-12-26 17:00 | XMS_ITS | Encounter Summary ---
Author Organization [facility] Address [address] [place] [address] Phone Care Team Providers Care Hospice Chaplain Name Role Phone Robert Hernandez MD Primary Care Provider [phone] Wily Regan DO Primary Care Provider [phone] Chantelle Shields MD Unavailable [phone] Teetee Gaming MD, Ramez Slaughter Unavailable + Bonnie Prince DPT Unavailable [phone] Chase Sofia MD Unavailable Jo Vyas OT Unavailable [phone] Jordin Alcantara NP Primary Care Provider [phone] Encounter Details Date Type Department Care Team (Late st Contact Info) Description 08/05/2018 Orders Only [facility] Surgery [address] [facility] 8th [place] [address] [place] [address] Molina Jackson MD [address] [place] [address] Social History Tobacco Use Types Packs/Day Years Used Date Smoking Tobacco: Never Smokeless Tobacco: Never Alcohol Use Standard Drinks/Week Comments No 0 (1 standard drink = 0.6 oz pur e alcohol) Comments No Sex and Gender Information Value Date Recorded Sex Assigned at Not on file Legal Sex Female 2:13 AM HOME ECONOMIST CONSUMER SERVICE Gender Identity Female 01/24/2021 10:20 AM CDT [...] documented as of this encounter Care Teams Hospice Chaplain Relationship Specialty Start Date End Date Robert Hernandez MD [address] [facility] [address] [facility] [address] [place] [address] PCP - General 03/30/18 12/13/20 Wily Regan DO [address] [place] [address] [address] [place] [address] PCP - General Internal Medicine 12/14/20 06/01/24 Jordin Alcantara, GAS OPERATION MANAGER [address] [place] [address] PCP - General Nurse Practitioner 06/02/24 Chantelle Shields MD [address] [place] [address] [address] [place] [address] Consulting Physician Internal Medicine 02/13/21 Ramez Kingsley Jr., MD [address] [place] [address] 162 [facility] [address] [place] [address] Consulting Physician Neurology 02/13/21 Bonnie Prince, DPT [address] [address] Physical Therapist Physical Therapy 08/14/22 Chase Sofia MD [address] [place] [address] Consulting Physician Gastroenterology 12/25/22 Jo Vyas, OT [address] [place] [address] Occupational Therapist Occupational Therapy 01/29/23 [place] [address] Business Continuity Strategy Director Infectious Diseases 08/11/22 documented as of this encounter
--- OUTSIDE RECORDS SUMMARY | 2024-12-26 17:00 | XMS_ITS | Encounter Summary ---
Author Organization [employer] Address 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
--- OUTSIDE RECORDS SUMMARY | 2024-12-26 17:00 | XMS_ITS | Encounter Summary ---
Author Organization [facility] Address [address] [place] [address] Care Team Providers Care Orchid Superintendent Name Role Phone Wily Regan DO Primary Care Provider [phone] Encounter Details Date Type Department Care Team (Late st Contact Info) Description 01/06/2001 Outpatient Historical [facility] [address] [facility] 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
--- OUTSIDE RECORDS SUMMARY | 2024-12-26 17:00 | XMS_ITS | Encounter Summary ---
Author Organization [employer] Address 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
--- OUTSIDE RECORDS SUMMARY | 2024-12-26 17:00 | XMS_ITS | Encounter Summary ---
Author Organization [employer] Address [address] [place] [address] Care Team Providers Care Marina Porter Name Role Phone Wily Regan DO Primary Care Provider [phone] Encounter Details Date Type Department Care Team [...] on file Legal Sex Female 5:22 AM BODY WIRER Gender Identity Not on file Sexual Orientation [...] documented as of this encounter Care Teams Marina Porter Relationship Specialty Start Date End Date Wily Regan DO [address] [place] [address] PCP - General Internal Medicine 07/01/19 documented as of this encounter
--- OUTSIDE RECORDS SUMMARY | 2024-12-26 17:00 | XMS_ITS | Encounter Summary ---
Author Organization [employer] Address 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
--- OUTSIDE RECORDS SUMMARY | 2024-12-26 17:00 | XMS_ITS | Encounter Summary ---
Author Organization [facility] Address [address] [place] [address] Care Team Providers Care Jig Grinder Set Up Operator Name Role Phone Wily Regan DO Primary Care Provider [phone] Encounter Details Date Type Department Care Team (Late st Contact Info) Description 07/18/1998 Outpatient Historical [facility] [address] [place] [address] Darwin Beasley MD NO ADDRESS ON FILE Social History Tobacco Use Types Packs/Day Years Used Date Smoking Tobacco: Never Assessed Comments Unknown Sex and Gender Information Value Date Recorded Sex Assigned at Not on file Legal Sex Female 5:22 AM VP PRODUCT Gender Identity Not on file Sexual Orientation [...] documented as of this encounter Care Teams Jig Grinder Set Up Operator Relationship Specialty Start Date End Date Wily Regan DO [address] [facility] [address] [place] [address] PCP - General Internal Medicine 07/01/19 documented as of this encounter
--- OUTSIDE RECORDS SUMMARY | 2024-12-26 17:00 | XMS_ITS | Encounter Summary ---
Author Organization [employer] Address 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
--- OUTSIDE RECORDS SUMMARY | 2024-12-26 17:00 | XMS_ITS | Encounter Summary ---
Author Organization [employer] Address [address] [place] [address] Care Team Providers Care Systems Spec Name Role Phone Wily Regan DO Primary Care Provider [phone] Encounter Details Date Type Department Care Team (Latest Contact Info) Description 09/14/2002 Outpatient Historical HIS PSYCH IOP [place] Eric Mcdonald MD [address] [facility] [address] [place] [address] DEPRESS PSYCHOSIS-UNSPEC (Primary Dx) Social History Tobacco Use Types Packs/Day Years Used Date Smoking Tobacco: Never Assessed Comments Unknown Sex and Gender Information Value Date Recorded Sex Assigned at Not on file Legal Sex Female 5:22 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
--- OUTSIDE RECORDS SUMMARY | 2024-12-26 17:00 | XMS_ITS | Encounter Summary ---
Author Organization [employer] Address 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 [address] [place] [address] PCP - General Internal Medicine 07/01/19 documented as of this encounter
--- OUTSIDE RECORDS SUMMARY | 2024-12-26 17:00 | XMS_ITS | Encounter Summary ---
Author Organization [facility] Address [address] [place] [address] Phone Care Team Providers Care Chopping Machine Operator Name Role Phone Wily Regan DO Primary Care Provider [phone] Chantelle Shields MD Unavailable [phone] Teetee Gaming MD, Ramez Slaughter Unavailable + Bonnie Prince DPT Unavailable [phone] Chase Sofia MD Unavailable Jo Vyas OT Unavailable [phone] Jordin Alcantara NP Primary Care Provider [phone] Encounter Details Date Type Department Care Team (Late st Contact Info) Description 10/03/2022 Orders Only [facility] Scanning, Provider Social [...] on file Legal Sex Female 2:13 AM ADMIN ASST Gender Identity Female 01/24/2021 10:20 AM CDT [...] on filedocumented in this encounter Care Teams Chopping Machine Operator Relationship Specialty Start Date End Date Wily Regan DO PCP - General Internal Medicine 12/14/20 06/01/24 Jordin Alcantara, TILE GRINDER [address] [place] [address] PCP - General Nurse Practitioner 06/02/24 Chantelle Shields MD Consulting Physician Internal Medicine 02/13/21 Ramez Kingsley Jr., MD Consulting Physician Neurology 02/13/21 Bonnie Prince DPT [address] [place] [address] Physical Therapist Physical Therapy 08/14/22 Chase Sofia MD [address] [place] [address] Consulting Physician Gastroenterology 12/25/22 Jo Vyas OT [address] [place] [address] Occupational Therapist Occupational Therapy 01/29/23 Sabrina Kurtz, [place] [address] Gun Profiler Infectious Diseases 08/11/22 documented as of this encounter
--- OUTSIDE RECORDS SUMMARY | 2024-12-26 17:01 | XMS_ITS | Clinical Summary ---
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 Advised it is ok to try OTC antihistamines plus low histamine diet for 2-4 weeks. If no improvement, would discontinue. Advised against rx meds at this time as we aren't sure about their purpose/use in the post covid setting. Migraine aura without headache 12/25/2021 Assessment & Plan (12/25/2021 9:24 AM ELEMENTARY ASSISTANT TEACHER): Yesterday she had an incident where she [...] (01/03/2020): Added automatically from request for surgery [id number] Chest pain due to GERD 07/19/2018 Overview (07/19/2018): Added automatically from request for surgery [id number] Esophageal dysphagia 07/13/2018 Overview (07/13/2018): Added automatically from request for surgery [id number] dysphagia s/p Avery fundoplication 04/20/2018 Hiatal hernia with gastroesophageal reflux 03/29 History of COVID-19 Shortness of breath Resolved Problems Problem Noted Date Diagnosed Date Resolved Date Dehydration 04/20/2018 04/22/2018 Encounters Date Type Department Care Team Description 12/15/2024 4:00 PM ELEMENTARY ASSISTANT TEACHER Office Visit [facility] General Neurology [address] [facility] 6th [address] [place] [address] Gabriella Garner PA Vestibular migraine (Primary Dx) 11/22/2024 Telephone [facility] - [facility] Minimally Invasive Surgery [address] [facility] 12th Floor, [place] [address] Radha Rosen 11/21/2024 7:39 AM ELEMENTARY ASSISTANT TEACHER - 11/21/2024 11:59 PM ELEMENTARY ASSISTANT TEACHER Hospital Encounter [facility] [address] [place] [address] Discharge Disposition: Discharge to home or self care 11/21/2024 Telephone [facility] ([facility] - [facility] Minimally Invasive Surgery [address] [facility] 12th Floor, [place] [address] Radha Rosen 11/17/2024 Telephone [facility] ([facility] - [facility] Minimally Invasive Surgery [address] [facility] 12th Floor, [place] [address] Radha Rosen 11/16/2024 Telephone [facility] ([facility] - [facility] Minimally Invasive Surgery [address] [facility] 12th Floor, [place] [address] Radha Rosen 10/27/2024 8:00 AM ELEMENTARY ASSISTANT TEACHER Therapy [facility] Physical Therapy [address] [place] [address] [address] [place] [address] Bonnie Prince, DPT Stephen MARIN (Primary Dx); Vestibular migraine 10/27/2024 7:00 AM ELEMENTARY ASSISTANT TEACHER Therapy [facility] Occupational Therapy [address] [place] [address] Jo Vyas, OT Long COVID (Primary Dx) 10/27/2024 Plan of Care Documentation [facility] Occupational Therapy [address] [place] [phone] from Last 3 Months Immunizations Immunization Administration [...] on file Legal Sex Female 2:13 AM ELEMENTARY ASSISTANT TEACHER Gender Identity Female 01/24/2021 10:20 AM CDT Sexual Orientation Straight 01/24/2021 10 :20 AM CDT Obstetrics History Last Filed Vital Signs Vital Sign Reading Time Taken Comments Blood Pressure 114/83 12/15/2024 3:56 PM ELEMENTARY ASSISTANT TEACHER Pulse 95 12/15/2024 3:56 PM ELEMENTARY ASSISTANT TEACHER Temperature 36.2 C (97.2 F) 12/15/2024 3:56 PM ELEMENTARY ASSISTANT TEACHER Respiratory Rate 18 05/02/2024 8:32 AM CDT Oxygen Saturation 98% 12/15/2024 3:56 PM ELEMENTARY ASSISTANT TEACHER Inhaled Oxygen Concentration - - Weight 73.5 [...] this topic Medical Devices Implanted Type Area Contour Path Tape Mill Operator Device Identifier Shelf Expiration Date Model / Serial / Lot Ethicon Endo Surgery Ligaclip Extra Ligate Open Medium Large Clip Internal Titanium Latex Free [id number] - [id number] Implanted:Qty: 1 on 12/29/2022 by Molina Jackson MD at [facility] N/A: Abdomen Ethicon Endo Surgery [id number] 09/08/2027 [id number] / / [id number] [employer]/C R Bard Phasix Sepra 4x3in Monofilament Resorbable Rectangle Mesh [id number] - [id number] Implanted:Qty: 1 on 12/29/2022 by Molina Jackson MD at [facility] N/A: Abdomen [employer]/C R Bard [id number] 04/05/2024 [id number] / / [id number] Procedures Procedure Name Priority Date/Time Associated Diagnosis Comments CT BODY OUTSIDE REFERENCE Routine 11/21/2024 7:39 AM ELEMENTARY ASSISTANT TEACHER from Last 3 Months Results * CT Body Outside Reference (11/21/2024 7:39 AM ELEMENTARY ASSISTANT TEACHER) Impressions [facility] - 11/21/2024 7:39 AM ELEMENTARY ASSISTANT TEACHER These images are for Reference purposes only and have not been reviewed by [facility] Radiology. There will be no report generated by a [facility] Radiologist. Narrative [facility] - 11/21/2024 7:39 AM ELEMENTARY ASSISTANT TEACHER EXAMINATION: Images For Reference Purposes Only L. Jordan Jackson MD IMG CT PROCEDURES Final Resu lt [facility] from Last 3 Months Insurance [facility] CHOICE PLUS ANTHEM ACCESS CHOICE ANTHEM ACCESS CHOICE Advance Directives For more information, please contact: [phone] * Full Code (Latest Code Status on [...] 9:26 AM 04/22/2018 5:40 PM Care Teams Electrotherapist Relationship Specialty Start Date End Date Jordin Alcantara, POSTMASTER [address] [place] [address] PCP - General Nurse Practitioner 06/02/24 Chantelle Shields MD Consulting Physician Internal Medicine 02/13/21 Ramez Kingsley Jr., MD Consulting Physician Neurology 02/13/21 Bonnie Prince DPT [address] [facility] [address] [place] [address] Physical Therapist Physical Therapy 08/14/22 Chase Sofia MD [address] [facility] [address] [place] [address] Consulting Physician Gastroenterology 12/25/22 Jo Vyas OT [address] [facility] [address] [place] [address] Occupational Therapist Occupational Therapy 01/29/23 [place] [address] Outsole Splicer Infectious Diseases 08/11/22
--- OUTSIDE RECORDS SUMMARY | 2024-12-26 17:01 | XMS_ITS | Clinical Summary ---
Author Organization [facility] Address [address] [place] [address] Phone Care Team Providers Care Head Of Acquisitions Name Role Phone Wily Regan DO Primary Care Provider [phone] Allergies Active Allergy Reactions Criticality Noted Date [...] on file Legal Sex Female 5:22 AM EDUCATIONAL ASSISTANT TEACHER Gender Identity Not on file Sexual Orientation Not on file Last Filed Vital Signs Vital Sign Reading Time Taken Comments Blood Pressure 114/78 07/22/2019 8:26 AM CDT Pulse 94 02/11/2020 9:41 AM CDT Temperature 37.8 C (100.1 F) 02/11/2020 9:41 AM CDT Respiratory Rate 18 10/09/2010 12:54 PM EDUCATIONAL ASSISTANT TEACHER Oxygen Saturation 99% 02/11/2020 9:41 AM CDT [...] patient's age to complete this topic Insurance [facility] [id number] Advance Directives For more information, please contact: [phone] * Full Code (Latest Code Status on [...] 10:49 AM 05/28/2010 1:45 PM Care Teams Head Of Acquisitions Relationship Specialty Start Date End Date Wily Regan DO [address] [facility] [address] [place] [address] PCP - General Internal Medicine 07/01/19
--- OUTSIDE RECORDS SUMMARY | 2024-12-26 17:01 | XMS_ITS | Clinical Summary ---
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
--- OUTSIDE RECORDS SUMMARY | 2024-12-26 17:01 | XMS_ITS | Referral Summary ---
Author Organization [facility] Address [address] [place] [address] Care Team Providers Care Foundry Laborer Coreroom Name Role Phone Chantelle Shields MD Unavailable [phone] Teetee Gaming MD, Ramez Slaughter Unavailable + Bonnie Prince DPT Unavailable [phone] Chase Sofia MD Unavailable Jo Vyas OT Unavailable [phone] Jordin Alcantara NP Primary Care Provider [phone] Encounters Date Type Department Care Team Description 12/15/2024 4:00 PM MARKSMANSHIP INSTRUCTOR Office Visit [facility] General Neurology [address] [place] [address] 6th Floor [address] [place] [id number] Gabriella Garner PA Vestibular migraine (Primary Dx) 11/22/2024 Telephone [facility] ([facility]) - [facility] Minimally Invasive Surgery [address] [facility] Advanced Medicine 12th Floor, [place] [address] Radha Rosen 11/21/2024 Telephone [facility] Advanced Medicine ([facility]) - [facility] Minimally Invasive Surgery [address] [facility] Advanced Medicine 12th Floor, [place] [address] Radha Rosen 11/21/2024 7:39 AM MARKSMANSHIP INSTRUCTOR - 11/21/2024 11:59 PM MARKSMANSHIP INSTRUCTOR Hospital Encounter [facility] [address] [place] [address] Discharge Disposition: Discharge to home or self care 11/17/2024 Telephone [facility] ([facility]) - [facility] Minimally Invasive Surgery [address] [facility] 12th Floor, [place] [address] Radha Rosen 11/16/[address] [facility]) - [facility] Minimally Invasive Surgery [address] [facility] 12th Floor, [place] [address] Radha Rosen 10/27/2024 Plan of Care Documentation [facility] Occupational Therapy [address] [place] [phone] 10/27/2024 8:00 AM MARKSMANSHIP INSTRUCTOR Therapy [facility] Physical Therapy [address] [place] [phone] Bonnie Prince, DPT Stephen MARIN (Primary Dx); Vestibular migraine 10/27/2024 7:00 AM MARKSMANSHIP INSTRUCTOR Therapy [facility] Occupational Therapy [address] [place] [phone] Jo Vyas, OT Stephen MARIN (Primary Dx) [...] 12/25/2021 Assessment & Plan (12/25/2021 9:25 AM MARKSMANSHIP INSTRUCTOR): Pt is interested in the new findings that relate MCAS to Long Covid. Advised it is ok to try OTC antihistamines plus low histamine diet for 2-4 weeks. If no improvement, would discontinue. Advised against rx meds at this time as we aren't sure about their purpose/use in the post covid setting. Migraine aura without headache 12/25/2021 Assessment & Plan (12/25/2021 9:24 AM MARKSMANSHIP INSTRUCTOR): Yesterday she had an incident where she [...] (01/03/2020): Added automatically from request for surgery [id number] Chest pain due to GERD 07/19/2018 Overview (07/19/2018): Added automatically from request for surgery [id number] Esophageal dysphagia 07/13/2018 Overview (07/13/2018): Added automatically from request for surgery [id number] dysphagia s/p Wojciech fundoplication 04/20/2018 Hiatal hernia with gastroesophageal reflux [...] on file Legal Sex Female 2:13 AM MARKSMANSHIP INSTRUCTOR Gender Identity Female 01/24/2021 10:20 AM CDT Sexual Orientation Straight 01/24/2021 10 :20 AM CDT Last Filed Vital Signs Vital Sign Reading Time Taken Comments Blood Pressure 114/83 12/15/2024 3:56 PM MARKSMANSHIP INSTRUCTOR Pulse 95 12/15/2024 3:56 PM MARKSMANSHIP INSTRUCTOR Temperature 36.2 C (97.2 F) 12/15/2024 3:56 PM MARKSMANSHIP INSTRUCTOR Respiratory Rate 18 05/02/2024 8:32 AM CDT Oxygen Saturation 98% 12/15/2024 3:56 PM MARKSMANSHIP INSTRUCTOR Inhaled Oxygen Concentration - - Weight 73.5 kg (162 lb) 06/02/2024 2:52 PM CDT Height 170.2 cm (5' 7 ) 06/02/2024 2:52 PM CDT Body Mass Index 25.37 06/02/2024 2:52 PM CDT Plan of Treatment Not on file Medical Devices Implanted Type Area Supervisor Waterproofing Device Identifier Shelf Expiration Date Model / Serial / Lot Ethicon Endo Surgery Ligaclip Extra Ligate Open Medium Large Clip Internal Titanium Latex Free [id number] - [id number] Implanted:Qty: 1 on 12/29/2022 by Molina Jackson MD at [facility] N/A: Abdomen Ethicon Endo Surgery [id number] 09/08/2027 [id number] / / [id number] [employer]ol Inc/C R Bard Phasix Sepra 4x3in Monofilament Resorbable Rectangle Mesh [id number] - [id number] Implanted:Qty: 1 on 12/29/2022 by Molina Jackson MD at [facility] N/A: Abdomen Davol Inc/C R Bard [id number] 04/05/2024 [id number] / / [id number] Procedures Procedure Name Priority Date/Time Associated Diagnosis Comments CT BODY OUTSIDE REFERENCE Routine 11/21/2024 7:39 AM MARKSMANSHIP INSTRUCTOR from Last 3 Months Results * CT Body Outside Reference (11/21/2024 7:39 AM MARKSMANSHIP INSTRUCTOR) Impressions [facility] - 11/21/2024 7:39 AM MARKSMANSHIP INSTRUCTOR These images are for Reference purposes only and have not been reviewed by [facility] Radiology. There will be no report generated by a [facility] Radiologist. Narrative [facility] - 11/21/2024 7:39 AM MARKSMANSHIP INSTRUCTOR EXAMINATION: Images For Reference Purposes Only Molina Jackson MD IMG CT PROCEDURES Final Resu lt Performing Organization Address City/State/[facility] Co de Phone Number [facility] from Last 3 Months Insurance [facility] [place] [address] [place] [address] CHOICE PLUS ANTHEM ACCESS CHOICE ANTHEM ACCESS CHOICE Advance Directives For more information, please contact: [phone] * Full Code (Latest Code Status on [...] 9:26 AM 04/22/2018 5:40 PM Care Teams Foundry Laborer Coreroom Relationship Specialty Start Date End Date Jordin Alcantara NP [address] [place] [address] PCP - General Nurse Practitioner 06/02/24 Chantelle Shields MD Consulting Physician Internal Medicine 02/13/21 Ramez Kingsley Jr., MD Consulting Physician Neurology 02/13/21 Bonnie Prince DPT [address] [facility] [address] [place] [address] Physical Therapist Physical Therapy 08/14/22 Chase Sofia MD [address] [place] [address] Consulting Physician Gastroenterology 12/25/22 Jo Vyas OT [address] [place] [address] Occupational Therapist Occupational Therapy 01/29/23 Sabrina Kurtz, [place] [address] Felling Machine Operator Infectious Diseases 08/11/22
== END 2024-12-26 16:07 | disposition home or self-care (01) ==
PROVIDERS: Emergency Provider Emergency Medicine; PCP Nurse Practitioner
DX: R11.2 Nausea with vomiting, unspecified (principal); R10.9 Unspecified abdominal pain; J10.1 Influenza due to other identified influenza virus with other respiratory manifestations; Z86.16 Personal history of COVID-19; Z87.440 Personal history of urinary (tract) infections; Z90.49 Acquired absence of other specified parts of digestive tract; Z90.710 Acquired absence of both cervix and uterus; Z79.899 Other long term (current) drug therapy
CPT/HCPCS: 36415; 74176; 80053; 83605; 83690; 85025; 85610; 85730; 96361; 96374; 99284; J2765; J7030

== ENCOUNTER 2025-04-06 08:47 | Outpatient (CLI) | payer BC, SELFPAY ==
--- NOTE | ~2025-04-06 | MM_ITS ---
EXAMINATION: MM screening don BI w avis HISTORY: Screening TECHNIQUE: Craniocaudal and mediolateral oblique 3-D tomosynthesis images were obtained and synthetic 2-D images were generated. CAD analysis was submitted and interpreted. COMPARISON: Comparison to multiple prior studies sequentially, with oldest reviewed study dated 05/2016. BREAST PARENCHYMAL COMPOSITION: Dense: The breasts are heterogeneously dense, which may obscure small masses FINDINGS: The left breast is stable without evidence for malignancy. There are developing nodular asy mmetries of the right breast. IMPRESSION: 1. Developing right breast nodular asymmetries, middle-posterior depth. 2. Additional mammographic views and possible breast ultrasound are recommended. BI-RADS Category 0: Incomplete: Needs additional imaging evaluation. Reviewed, dictated and finalized at location A. IMPRESSION: 1. Developing right breast nodular asymmetries, middle-posterior depth. 2. Additional mammographic views and possible breast ultrasound are recommended . BI-RADS Category 0: Incomplete: Needs additional imaging evaluation.
--- OUTSIDE RECORDS SUMMARY | 2025-04-06 08:54 | XMS_ITS | Encounter Summary ---
Author Organization [employer] Address [address] [place] [address] Care Team Providers Care Principal Database Developer Name Role Phone Wily Regan DO Primary Care Provider [phone] Encounter Details Date Type Department Care Team [...] on file Legal Sex Female 5:22 AM CASHIER AND WAITER/WAITRESS Gender Identity Not on file Sexual Orientation [...] documented as of this encounter Care Teams Principal Database Developer Relationship Specialty Start Date End Date Wily Regan DO [address] [facility] [address] [place] [address] PCP - General Internal Medicine 07/01/19 documented as of this encounter
--- OUTSIDE RECORDS SUMMARY | 2025-04-06 08:54 | XMS_ITS | Encounter Summary ---
Author Organization [facility] Address [address] [place] [address] Phone Care Team Providers Care Bill Of Lading Clerk Name Role Phone Robert Hernandez MD Primary Care Provider [phone] Wily Regan DO Primary Care Provider [phone] Chantelle Shields MD Unavailable [phone] Teetee Gaming MD, Ramez Slaughter Unavailable + Bonnie Prince DPT Unavailable [phone] Chase Sofia MD Unavailable Jo Vyas OT Unavailable [phone] Jordin Alcantara NP Primary Care Provider [phone] Encounter Details Date Type Department Care Team (Late st Contact Info) Description 08/05/2018 Orders Only [facility] Surgery [address] [facility] Advanced Medicine 8th [place] [address] [place] [address] Molina Jackson MD [address] [place] [address] Social History Tobacco Use Types Packs/Day Years Used Date Smoking Tobacco: Never Smokeless Tobacco: Never Alcohol Use Standard Drinks/Week Comments No 0 (1 standard drink = 0.6 oz pur e alcohol) Comments No Sex and Gender Information Value Date Recorded Sex Assigned at Not on file Legal Sex Female 2:13 AM BUTTON MAKER AND INSTALLER Gender Identity Female 01/24/2021 10:20 AM CDT [...] documented as of this encounter Care Teams Bill Of Lading Clerk Relationship Specialty Start Date End Date Robert Hernandez MD [address] [facility] [address] [place] [address] PCP - General 03/30/18 12/13/20 Wily Regan DO [address] [place] [address] [address] [place] [address] PCP - General Internal Medicine 12/14/20 06/01/24 Jordin Alcantara, WINDOW GLAZIER [address] [place] [address] PCP - General Nurse Practitioner 06/02/24 Chantelle Shields MD [address] [place] [address] [address] [place] [address] Consulting Physician Internal Medicine 02/13/21 Ramez Kingsley Jr., MD [address] [facility] [address] [place] [address] Consulting Physician Neurology 02/13/21 Bonnie Prince, DPT [address] [facility] [address] [place] [address] Physical Therapist Physical Therapy 08/14/22 Chase Sofia MD [address] [place] [address] Consulting Physician Gastroenterology 12/25/22 Jo Vyas, OT [address] [place] [address] Occupational Therapist Occupational Therapy 01/29/23 [place] [address] Pattern Scratcher Infectious Diseases 08/11/22 documented as of this encounter
--- OUTSIDE RECORDS SUMMARY | 2025-04-06 08:54 | XMS_ITS | Encounter Summary ---
Author Organization [employer] Address [address] [place] [address] Care Team Providers Care Coating Line Worker Name Role Phone Wily Regan DO Primary Care Provider [phone] Encounter Details Date Type Department Care Team [...] on file Legal Sex Female 5:22 AM ADVERTISING ASSISTANT MANAGER Gender Identity Not on file Sexual [...] documented as of this encounter Care Teams Coating Line Worker Relationship Specialty Start Date End Date Wily Regan DO [address] [facility] [address] [place] [address] PCP - General Internal Medicine 07/01/19 documented as of this encounter
--- OUTSIDE RECORDS SUMMARY | 2025-04-06 08:54 | XMS_ITS | Encounter Summary ---
Author Organization [employer] Address [address] [place] [address] Care Team Providers Care Manganese Breaker Name Role Phone Wily Regan DO Primary [...] on file Legal Sex Female 5:22 AM PEWTER FINISHER Gender Identity Not on file Sexual [...] documented as of this encounter Care Teams Manganese Breaker Relationship Specialty Start Date End Date Wily Regan DO [address] [facility] [address] [place] [address] PCP - General Internal Medicine 07/01/19 documented as of this encounter
--- OUTSIDE RECORDS SUMMARY | 2025-04-06 08:54 | XMS_ITS | Clinical Summary ---
Author Organization [facility] Address [address] [place] [address] Care Team Providers Care Material Reprocessing Associate Name Role Phone Chantelle Shields MD Unavailable [phone] Teetee Gaming MD, Steven Richard Unavailable + Bonnie Prince DPT Unavailable [phone] Chase Sofia MD Unavailable Jo Vyas OT Unavailable [phone] Jordin Alcantara NP Primary Care Provider [phone] Allergies Active Allergy Reactions Criticality Noted Date Comments Iodinated Contrast Media Hives Medium 07/08/2019 Medications ondansetron ODT (ZOFRAN-ODT) 4 mg disintegrating tablet Take 1 tablet (4 mg total) by mouth every 8 (eight) hours as needed for nausea or vomiting 20 tablet 2 12/31/19 23 Active propranoloL (INDERAL) 10 mg tabletIndications: Migraine Prevention Take 1 tablet (10 mg total) by mouth 2 (two) times a day Crush pills take in applesauce until 01/05 when able to take pills whole 12/31/19 23 Active Additional Information Patient taking differently:10 mg oralNightly, (No instructions reported), Indications: Migraine Prevention, Reported on 12/15/2024 nortriptyline (PAMELOR) 25 mg capsule Take 1 capsule (25 mg total) by mouth nightly 30 capsule 1 04/20/20 23 Active gabapentin (NEURONTIN) 300 mg capsuleIndications :Generalized muscle ache,COVID-19,Hist ory of COVID-19 TAKE 1 CAPSULE THREE TIMES DAILY. OPEN CAPSULE IN APPLESAUCE DIRECTED TILL ABLE TO TAKE WHOLE PILL 90 capsule 1 10/21/20 23 Active Additional Information Patient taking differently: Pt taking 400mg bid, Reported on 12/15/2024 guaiFENesin-codein e (GUAITUSS AC) liquid 100-10 mg/5 mL Take 5 mL by mouth 4 (four) times a day as needed for cough 120 mL 01/01/20 24 Active rizatriptan (MAXALT) 10 mg tabletIndications: Migraine Take 1 tablet (10 mg total) by mouth once as needed for migraine May repeat in 2 hours if unresolved. Do not exceed 3 in 24 hours. 9 tablet 5 01/20/20 24 Active fremanezumab-vfrm (Ajovy Autoinjector) 225 mg/1.5 mL auto-injector subcutaneous auto-injector ADMINISTER 1.5 ML(225 MG) UNDER THE SKIN EVERY 30 DAYS 1.5 mL 11 08/12/20 24 Active topiramate (TOPAMAX) 25 mg tabletIndications: Intractable chronic migraine with aura and without status migrainosus,Vestib ular migraine Take 1 tablet (25 mg total) by mouth nightly 30 tablet 5 03/17/20 25 Active topiramate (TOPAMAX) 25 mg tabletIndications: Intractable chronic migraine with aura and without status migrainosus,Vestib ular migraine Take 2 tablets (50 mg total) by mouth nightly 60 tablet 11 01/20/20 24 025 Discontin ued(Reord er) Active Problems Problem Noted Date Diagnosed Date Nutritional counseling 05/16/2024 Brain fog 12/23/2023 Vaccine counseling 09/08/2023 Anxiety about health 01/25/2023 Disrupted sleep-wake cycle 01/25/2023 Moderate malnutrition 12/30/2022 Paraesophageal hernia 12/29/2022 COVID-19 hi garcia manifesting chronic fatigue 10/26/2022 COVID-19 hi garcia manifes ting chronic decreased mobility and endurance 10/26/2022 Long COVID 07/08/2022 Dizziness 07/08/2022 Fatigue 07/08/2022 Myalgia 07/08/2022 Vestibular migraine 02/07/2022 Post covid-19 condition, unspecified 12/25/2021 Assessment & Plan (12/25/2021 9:25 AM BOARDER HAND): Pt is interested in the new findings that relate MCAS to Long Covid. Advised it is ok to try OTC antihistamines plus low histamine diet for 2-4 weeks. If no improvement, would discontinue. Advised against rx meds at this time as we aren't sure about their purpose/use in the post covid setting. Migraine aura without headache 12/25/2021 Assessment & Plan (12/25/2021 9:24 AM BOARDER HAND): Yesterday she had an incident where she [...] (01/03/2020): Added automatically from request for surgery [id number] Chest pain due to GERD 07/19/2018 Overview (07/19/2018): Added automatically from request for surgery [id number] Esophageal dysphagia 07/13/2018 Overview (07/13/2018): Added automatically from request for surgery [id number] dysphagia s/p Avery fundoplication 04/20/2018 Hiatal hernia with gastroesophageal reflux 03/29 History of COVID-19 Shortness of breath Resolved Problems Problem Noted Date Diagnosed Date Resolved Date Dehydration 04/20/2018 04/22/2018 Encounters Date Type Department Care Team Description 01/12/2025 7:00 AM BOARDER HAND Therapy [facility] Occupational Therapy [address] [place], [place] [phone] Jo Vyas OT Long COVID (Primary Dx) from Last 3 Months Immunizations Immunization Administration [...] on file Legal Sex Female 2:13 AM BOARDER HAND Gender Identity Female 01/24/2021 10:20 AM CDT Sexual Orientation Straight 01/24/2021 10 :20 AM CDT Obstetrics History Last Filed Vital Signs Vital Sign Reading Time Taken Comments Blood Pressure 114/83 12/15/2024 3:56 PM BOARDER HAND Pulse 95 12/15/2024 3:56 PM BOARDER HAND Temperature 36.2 C (97.2 F) 12/15/2024 3:56 PM BOARDER HAND Respiratory Rate 18 05/02/2024 8:32 AM CDT Oxygen Saturation 98% 12/15/2024 3:56 PM BOARDER HAND Inhaled Oxygen Concentration - - Weight 73.5 kg (162 lb) 06/02/2024 2:52 PM CDT Height 170.2 cm (5' 7) 06/02/2024 2:52 PM CDT Body Mass Index [...] season) 2024 09/29/2021, 01/31/2021, 01/08/2021 Influenza Vaccine (Season Ended) 2025 08/23/2014, 08/20/2012, 08/30/2010, Additional history exists HPV Vaccines Aged Out No longer eligi ble based on patient's age to complete this topic Pneumococcal vaccine <65 Aged Out No longer eligible based on patient's age to complete this topic Medical Devices Implanted Type Area Station Baggage Agent Device Identifier Shelf Expiration Date Model / Serial / Lot Ethicon Endo Surgery Ligaclip Extra Ligate Open Medium Large Clip Internal Titanium Latex Free [id number] - [id number] Implanted:Qty: 1 on 12/29/2022 by Molina Jackson MD at [facility] N/A: Abdomen Ethicon Endo Surgery [id number] 09/08/2027 [id number] / / [id number] [employer] Inc/C R Bard Phasix Sepra 4x3in Monofilament Resorbable Rectangle Mesh [id number] - [id number] Implanted:Qty: 1 on 12/29/2022 by Molina Jackson MD at [facility] N/A: Abdomen Nancy Inc/C [facility] [id number] 04/05/2024 [id number] / / [id number] Insurance [facility] Member Subscriber Plan / Payer (Ef fective 2018-Present) Name:Leonora Wong Relation to Subscriber:Self Name:LEONORA WONG Payer ID:[id number] (NAIC) Type:[facility] HMO/PPO Address: [address] CHOICE PLUS [facility] [employer] CHOICE ANTHEM ACCESS CHOICE Advance Directives For more information, please contact: [phone] * Full Code (Latest Code Status on [...] 9:26 AM 04/22/2018 5:40 PM Care Teams Material Reprocessing Associate Relationship Specialty Start Date End Date Jordin Alcantara NP [address] [place] [address] PCP - General Nurse Practitioner 06/02/24 Chantelle Shields MD Consulting Physician Internal Medicine 02/13/21 Ramez Kingsley Jr., MD Consulting Physician Neurology 02/13/21 Bonnie Prince, DPT [address] [place] [address] Physical Therapist Physical Therapy 08/14/22 Chase Sofia MD [address] [place], [place] [address] Consulting Physician Gastroenterology 12/25/22 Jo Vyas OT [address] [place] [address] Occupational Therapist Occupational Therapy 01/29/23 [place] [address] Relationship Consultant Infectious Diseases 08/11/22
--- OUTSIDE RECORDS SUMMARY | 2025-04-06 08:54 | XMS_ITS | Referral Summary ---
Author Organization [facility] Address [address] [place] [address] Care Team Providers Care Staking Engineer Name Role Phone Chantelle Shields MD Unavailable Teetee Gaming MD, Ramez Slaughter Unavailable + Bonnie Prince DPT Unavailable [phone] Chase Sofia MD Unavailable Jo Vyas OT Unavailable [phone] Jordin Alcantara NP Primary Care Provider [phone] Encounters Date Type Department Care Team Description 01/12/2025 7:00 AM CONFERENCE ASSISTANT Therapy [facility] Occupational Therapy [address] [phone] Jo Vyas OT Long COVID (Primary Dx) from Last 3 Months Allergies [...] Moderate malnutrition 12/30/2022 Paraesophageal hernia 12/29/2022 COVID-19 long hauler manifesting chronic fatigue 10/26/2022 COVID-19 hi garcia manifes ting chronic decreased mobility and endurance 10/26/2022 Long COVID 07/08/2022 Dizziness 07/08/2022 Fatigue 07/08/2022 Myalgia 07/08/2022 Vestibular migraine 02/07/2022 Post covid-19 condition, unspecified 12/25/2021 Assessment & Plan (12/25/2021 9:25 AM CONFERENCE ASSISTANT): Pt is interested in the new findings that relate [facility]AS to Long Covid. Advised it is ok to try OTC antihistamines plus low histamine diet for 2-4 weeks. If no improvement, would discontinue. Advised against rx meds at this time as we aren't sure about their purpose/use in the post covid setting. Migraine aura without headache 12/25/2021 Assessment & Plan (12/25/2021 9:24 AM CONFERENCE ASSISTANT): Yesterday she had an incident where she [...] (01/03/2020): Added automatically from request for surgery [id number] Chest pain due to GERD 07/19/2018 Overview (07/19/2018): Added automatically from request for surgery [id number] Esophageal dysphagia 07/13/2018 Overview (07/13/2018): Added automatically from request for surgery [id number] dysphagia s/p Wojciech fundoplication 04/20/2018 Hiatal hernia [...] on file Legal Sex Female 2:13 AM CONFERENCE ASSISTANT Gender Identity Female 01/24/2021 10:20 AM CDT Sexual Orientation Straight 01/24/2021 10 :20 AM CDT Last Filed Vital Signs Vital Sign Reading Time Taken Comments Blood Pressure 114/83 12/15/2024 3:56 PM CONFERENCE ASSISTANT Pulse 95 12/15/2024 3:56 PM CONFERENCE ASSISTANT Temperature 36.2 C (97.2 F) 12/15/2024 3:56 PM CONFERENCE ASSISTANT Respiratory Rate 18 05/02/2024 8:32 AM CDT Oxygen Saturation 98% 12/15/2024 3:56 PM CONFERENCE ASSISTANT Inhaled Oxygen Concentration - - Weight 73.5 kg (162 lb) 06/02/2024 2:52 PM CDT Height 170.2 cm (5' 7) 06/02/2024 2:52 PM CDT Body Mass Index 25.37 06/02/2024 2:52 PM CDT Plan of Treatment Not on file Medical Devices Implanted Type Area Cigar Wrapper Tender Automatic Device Identifier Shelf Expiration Date Model / Serial / Lot Ethicon Endo Surgery Ligaclip Extra Ligate Open Medium Large Clip Internal Titanium Latex Free [id number] - [id number] Implanted:Qty: 1 on 12/29/2022 by Molina Jackson MD at [facility] N/A: Abdomen Ethicon Endo Surgery [id number] 09/08/2027 [id number] / / [id number] [employer]/C R Bard Phasix Sepra 4x3in Monofilament Resorbable Rectangle Mesh [id number] - [id number] Implanted:Qty: 1 on 12/29/2022 by Molina Jackson MD at [facility] N/A: Abdomen [employer]/C R Bard [id number] 04/05/2024 [id number] / / [id number] Insurance [facility] [address] [facility] ANTHEM ACCESS CHOICE Advance Directives For more information, please contact: [phone] * Full Code (Latest Code Status on [...] 9:26 AM 04/22/2018 5:40 PM Care Teams Staking Engineer Relationship Specialty Start Date End Date Jordin Alcantara NP [address] [place] [address] PCP - General Nurse Practitioner 06/02/24 Chantelle Shields MD Consulting Physician Internal Medicine 02/13/21 Ramez Kingsley Jr., MD Consulting Physician Neurology 02/13/21 Bonnie Prince, JOSE DE JESUST [address] [place] [address] Physical Therapist Physical Therapy 08/14/22 Chase Sofia MD [address] [facility] [address] [place] [address] Consulting Physician Gastroenterology 12/25/22 Jo Vyas OT [address] [place] [address] Occupational Therapist Occupational Therapy 01/29/23 Sabrina Kurtz, [place] [address] Commercial Lines Sales Executive Infectious Diseases 08/11/22
--- OUTSIDE RECORDS SUMMARY | 2025-04-06 08:54 | XMS_ITS | Clinical Summary ---
Author Organization [facility] Address [address] [place], [address] [address] Phone Care Team Providers Care Head Of Mobile Name Role Phone Wily Regan DO Primary Care Provider [phone] Allergies Active Allergy Reactions Criticality Noted Date [...] on file Legal Sex Female 9:00 AM SCREEN ROLLER Gender Identity Not on file Sexual Orientation [...] 10:03 AM CDT Height 170.2 cm (5' 7) 04/06/2019 8:49 AM CDT Body Mass Index 22.87 04/06/2019 8:49 AM CDT Plan of Treatment Health Maintenance Due Date Last Done Comments Hepatitis C Virus (HCV) Screening 1983 TdaP Immunization 1983 Hepatitis B Immunization (1 of 3 - 19+ 3-dose series) 2002 Influenza Immunization (#1) 07/10/202408/09, 08/20/2012 SARS-COV-2 Immunization [...] age to complete this topic Care Teams Head Of Mobile Relationship Specialty Start Date End Date Wily Regan DO [address] [address] PCP - General Internal Medicine 04/06/19
--- OUTSIDE RECORDS SUMMARY | 2025-04-06 08:54 | XMS_ITS | Encounter Summary ---
Author Organization [employer] Address 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
--- OUTSIDE RECORDS SUMMARY | 2025-04-06 08:54 | XMS_ITS | Encounter Summary ---
Author Organization [employer] Address 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
--- OUTSIDE RECORDS SUMMARY | 2025-04-06 08:54 | XMS_ITS | Encounter Summary ---
Author Organization [employer] Address 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
--- OUTSIDE RECORDS SUMMARY | 2025-04-06 08:54 | XMS_ITS | Encounter Summary ---
Author Organization [employer] Address [address] [place] [address] Care Team Providers Care Macroeconomics Professor Name Role Phone Wily Regan DO Primary Care Provider [phone] Encounter Details Date Type Department Care Team (Latest Contact Info) Description 09/07/2002 Inpatient Historical HIS PATIENT IN A BED Eric Mcdonald MD [address] [facility] [address] [place] [address] BIPOL AFFECT, MIXED-UNSPEC (CMS/HCC) (Primary Dx) Social History Tobacco Use Types Packs/Day Years Used Date Smoking Tobacco: Never Assessed Comments Unknown Sex and Gender Information Value Date Recorded Sex Assigned at Not on file 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
--- OUTSIDE RECORDS SUMMARY | 2025-04-06 08:54 | XMS_ITS | Encounter Summary ---
Author Organization [employer] Address 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
--- OUTSIDE RECORDS SUMMARY | 2025-04-06 08:54 | XMS_ITS | Encounter Summary ---
Author Organization [facility] Address [address] [place] [address] Care Team Providers Care Agricultural Equipment Test Engineer Name Role Phone Wily Regan DO Primary Care Provider Encounter Details Date Type Department Care Team (Late st Contact Info) Description 01/06/2001 Outpatient Historical [facility] [address] [place] [address]. 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
--- OUTSIDE RECORDS SUMMARY | 2025-04-06 08:54 | XMS_ITS | Encounter Summary ---
Author Organization [employer] Address 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
--- OUTSIDE RECORDS SUMMARY | 2025-04-06 08:54 | XMS_ITS | Encounter Summary ---
Author Organization [facility] Address [address] [place] [address] Phone Care Team Providers Care Health Services Manager Name Role Phone Wily Regan DO Primary Care Provider [phone] Chantelle Shields MD Unavailable [phone] Teetee Gaming MD, Ramez Slaughter Unavailable + Bonnie Prince DPT Unavailable [phone] Chase Sofia MD Unavailable Jo Vyas OT Unavailable [phone] Jordin Alcantara NP Primary Care Provider [phone] Encounter Details Date Type Department Care Team [...] on file 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 Female 2:13 AM WELL 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 Gender Identity Female 01/24/2021 10:20 AM CDT [...] on filedocumented in this encounter Care Teams Health Services Manager Relationship Specialty Start Date End Date Wily Regan DO PCP - General Internal Medicine 12/14/20 06/01/24 Jordin Alcantara, SPECIAL EDUCATION INSTRUCTOR [address] [place] [address] PCP - General Nurse Practitioner 06/02/24 Chantelle Shields MD Consulting Physician Internal Medicine 02/13/21 Ramez Kingsley Jr., MD Consulting Physician Neurology 02/13/21 Bonnie Prince DPT [address] [place] [address] Physical Therapist Physical Therapy 08/14/22 Chase Sofia MD [address] [place] [address] Consulting Physician Gastroenterology 12/25/22 Jo Vyas OT [address] [place] [address] Occupational Therapist Occupational Therapy 01/29/23 Sabrina Kurtz, [place] [address] Belt Knife Feeder Infectious Diseases 08/11/22 documented as of this encounter
--- OUTSIDE RECORDS SUMMARY | 2025-04-06 08:54 | XMS_ITS | Encounter Summary ---
Author Organization [facility] Address [address] [place] [address] Care Team Providers Care Windows Systems Architect Name Role Phone Wily Regan DO Primary Care Provider [phone] Encounter Details Date Type Department Care Team (Late st Contact Info) Description 07/18/1998 Outpatient Historical [facility] [address] [place] [address]. 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
--- OUTSIDE RECORDS SUMMARY | 2025-04-06 08:54 | XMS_ITS | Encounter Summary ---
Author Organization [facility] Address [address] [place] [address] Care Team Providers Care Slot Floorperson Name Role Phone Wily Regan DO Primary Care Provider [phone] Encounter Details Date Type Department Care Team (Late st Contact Info) Description 09/01/2000 Outpatient Historical [facility] [address] [place] [address]. 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
--- OUTSIDE RECORDS SUMMARY | 2025-04-06 08:54 | XMS_ITS | Encounter Summary ---
Author Organization [employer] Address 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
--- OUTSIDE RECORDS SUMMARY | 2025-04-06 08:54 | XMS_ITS | Encounter Summary ---
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 Gender Identity Female 01/24/2021 10:20 AM CDT [...] on filedocumented in this encounter Care Teams Echocardiography Tech Relationship Specialty Start Date End Date Wily Regan DO PCP - General Internal Medicine 12/14/20 06/01/24 Jordin Alcantara, COLLECTION SUPERVISOR [address] [place] [address] PCP - General Nurse Practitioner 06/02/24 Chantelle Shields MD Consulting Physician Internal Medicine 02/13/21 Ramez Kingsley Jr., MD Consulting Physician Neurology 02/13/21 Bonnie Prince DPT [address] [place] [address] Physical Therapist Physical Therapy 08/14/22 Chase Sofia MD [address] [place] [address] Consulting Physician Gastroenterology 12/25/22 Jo Vyas OT [address] [place] [address] Occupational Therapist Occupational Therapy 01/29/23 Sabrina Kurtz, [place] [address] Whizzer Operator Infectious Diseases 08/11/22 documented as of this encounter
--- OUTSIDE RECORDS SUMMARY | 2025-04-06 08:54 | XMS_ITS | Encounter Summary ---
Author Organization [employer] Address 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
--- OUTSIDE RECORDS SUMMARY | 2025-04-06 08:54 | XMS_ITS | Clinical Summary ---
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 Gender Identity Not on file Sexual Orientation Not on file Last Filed Vital Signs Vital Sign Reading Time Taken Comments Blood Pressure 114/78 07/22/2019 8:26 AM CDT Pulse 94 02/11/2020 9:41 AM CDT Temperature 37.8 C (100.1 F) 02/11/2020 9:41 AM CDT Respiratory Rate 18 10/09/2010 12:54 PM LEGAL OFFICER Oxygen Saturation 99% 02/11/2020 9:41 AM CDT Inhaled Oxygen Concentration - - Weight 66 kg (145 lb 9.6 oz) 07/22/2019 8:26 AM CDT Height 170.2 cm (5' 7) 07/22/2019 8:26 AM CDT Body Mass Index 22.8 07/22/2019 8:26 AM CDT Plan of Treatment Health Maintenance Due Date Last Done Comments DTAP/TDAP/TD VACCINES (1 - Tdap) 2002 HEPATITIS B VACCINES (1 of 3 - 19+ 3-dose series) 2002 HPV/Cotest (21-29) 2004 CERVICAL CANCER SCREENING 2013 HPV/Cotest (30-65) 2013 PAP SMEAR 2013 BREAST CANCER SCREENING 2023 INFLUENZA VACCINE (#1) 2024 0, 09/01/2009 HPV VACCINES Aged Out No longer eligi ble based on patient's age to complete this topic Insurance ([place]) [id number] [id number] [facility] [id number] Advance Directives For more information, please contact: [phone] * Full Code (Latest Code Status on [...] 10:49 AM 05/28/2010 1:45 PM Care Teams Motion Picture Projectionist Relationship Specialty Start Date End Date Wily Regan DO [address] [facility] [address] [place] [address] PCP - General Internal Medicine 07/01/19
--- OUTSIDE RECORDS SUMMARY | 2025-04-06 08:54 | XMS_ITS | Encounter Summary ---
Author Organization [facility] Address 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
== END 2025-04-06 08:48 | disposition home or self-care (01) ==
LOC: ANHIMG 08:49
PROVIDERS: PCP Internal Medicine; Visit Provider Pediatrics
DX: Z12.31 Encounter for screening mammogram for malignant neoplasm of breast (principal); N63.10 Unspecified lump in the right breast, unspecified quadrant
CPT/HCPCS: 77063; 77067

== ENCOUNTER 2025-04-28 12:49 | Outpatient (CLI) | payer BC, SELFPAY ==
--- NOTE | ~2025-04-28 | MMUS_ITS ---
EXAMINATION: MM diagnostic don RT w avis, US breast RT complete HISTORY: Follow-up right breast asymmetries TECHNIQUE: Additional 3-D tomosynthesis images of the breasts were performed and synthetic 2-D images were generated. CAD analysis was submitted and interpreted. High resolution complete right breast ul trasound was performed. COMPARISON: Comparison to multiple prior studies sequentially, with oldest reviewed study dated 05/2016. BREAST PARENCHYMAL COMPOSITION: Dense: The breasts are heterogeneously dense, which may obscure small masses FINDINGS: MAMMOGRAPHIC FINDINGS: There are persistent asymmetries in the upper aspect of the right breast, although no discrete mass, suspicious architectural distortion or clustered calcifications are identified. ULTRASOUND: Complete US of all 4 quadrants of the right breast/s and retroareolar region was reviewed. There are multiple simple and complicated cysts of the right breast. No suspicious masses to suggest malignancy . IMPRESSION: 1. No evidence for malignancy in the right breast. Benign findings. 2. Routine yearly screening mammogram and regular clinical breast examination are recommended. BI-RADS Category 2: Benign finding(s). Reviewed, dictated and finalized at location A. IMPRESSION: 1. No evidence for malignancy in the right breast. Benign findings. 2. Routine yearly screening mammogram and regular clinical breast examination a re recommended. BI-RADS Category 2: Benign finding(s).
== END 2025-04-28 12:50 | disposition home or self-care (01) ==
LOC: ANHIMG 12:51
PROVIDERS: PCP Internal Medicine; Visit Provider Obstetrics & Gynecology
DX: R92.8 Other abnormal and inconclusive findings on diagnostic imaging of breast (principal)
CPT/HCPCS: 76641; 77061; 77065; G0279